=== PATIENT | female | born 1950 | race Caucasian/White ===

== ENCOUNTER 2020-12-14 08:43 | Outpatient (REF) | payer MEDICARE, SELFPAY ==
--- NOTE | 2020-12-14 08:49 | MM_ITS ---
EXAMINATION: MM SCREENING DIGITAL BREAST TOMOSYNTHESIS, BILATERAL CLINICAL INFORMATION: Screening. Asymptomatic. The lifetime risk of breast cancer based on the Tyrer-Cuzick Model is 2%. COMPARISON: Mammography: 12/09/2019, 12/17/2018, 12/03/2018, 11/25/2017, 11/22/2016 TECHNIQUE: Digital breast tomosynthesis is performed in both the craniocaudal and mediolateral oblique views along with computer-aided detection (CAD). Synthesized 2D images are generated from the tomosynthesis. Additional left MLO view is provided. FINDINGS: The breasts are heterogeneously dense, which may obscure small masses (ACR BI-RADS breast composition Category c). There are no significant masses, abnormal calcifications, or other abnormalities. Parenchymal pattern is similar to prior exams. No developing density. No significant changes. MM/MM tomosynthesis screening BI IMPRESSION: No mammographic evidence of malignancy. ASSESSMENT: BI-RADS 1: Negative RECOMMENDATION: Routine annual mammography screening. This patient's information was entered into a reminder system with a target due date for their next mammogram.
== END 2020-12-14 08:44 | disposition home or self-care (01) ==
LOC: HO.MAMMO 08:43
PROVIDERS: PCP Internal Medicine; Visit Provider Internal Medicine
DX: Z12.31 Encounter for screening mammogram for malignant neoplasm of breast (principal)
CPT/HCPCS: 77063; 77067

== ENCOUNTER → 2021-01-08 09:11 | Outpatient (BNVA) | payer MEDICARE, SELFPAY | PROVIDERS: PCP Internal Medicine; Visit Provider Obstetrics & Gynecology ==

== ENCOUNTER 2021-01-18 08:57 | Outpatient (REF) | payer MEDICARE, SELFPAY ==
--- NOTE | ~2021-01-18 | MM_ITS ---
EXAMINATION: BONE DENSITOMETRY CLINICAL INDICATION: Asymptomatic menopausal state. COMPARISON: Previous BD dated 11/25/2017 and baseline BD dated 10/07/2013. TECHNIQUE: Using a [employer] DXA System (software version: 13.1) manufactured by [employer], dual-energy x-ray absorptiometry was performed of the lumbar spine and left hip. The images are of good technical quality. Summary results are attached. FINDINGS: AP SPINE L1-L4: Current: BMD 1.040 g/cm2, Z-score 1.0, T-score -1.2, osteopenia, 18.6% increase from previous, 17.2% increase from baseline (<5% change is not significant). Prior: BMD 0.877 g/cm2. Baseline: BMD 0.887 g/cm2. LEFT FEMUR, NECK: Current: BMD 0.724 g/cm2, Z-score -0.1, T-score -2.3, osteopenia. Prior: BMD 0.743 g/cm2. Baseline: BMD 0.764 g/cm2. LEFT FEMUR, TOTAL: Current: BMD 0.730 g/cm2, Z-score -0.3, T-score -2.2, osteopenia, 2.1% decrease from previous, 1.7% decrease from baseline (<5% change is not significant). Prior: BMD 0.746 g/cm2. Baseline: BMD 0.743 g/cm2. IDENTIFIED RISK FACTORS: Osteoporosis, history of fracture (adult), menopause. HISTORY OF FRACTURE: Wrist. MEDICATIONS: Calcium supplements or multivitamin, vitamin D, bisphosphonate. MM/XR DEXA axial skeleton IMPRESSION: 1. DIAGNOSIS: Osteopenia based on the lowest T-score value of -2.3 in the femoral neck applying World Health Organization criteria. 2. 10-YEAR FRACTURE RISK PREDICTION, FRAX: Major osteoporotic fracture (clinical spine, forearm, hip or shoulder) 19.1%. Hip fracture 5.0%. 3. Treatment Recommendations: NOF guidelines recommend consideration for treatment in postmenopausal women and men age 50 and older presenting with the following: -A hip or vertebral (clinical or morphometric) fracture. -T-score less than or equal to -2.5 at the femoral neck or spine after appropriate evaluation to exclude secondary causes. -Low bone mass at the hip or spine and a 10-year fracture probability by FRAX of greater than or equal to 3% for hip fracture or greater than or equal to 20% for major osteoporotic fracture based on the [place] adapted WHO algorithm. 4. Other Recommendations: All treatment decisions require clinical judgment and consideration of individual patient factors, including patient preferences, comorbidities, previous drug use, risk factors not captured in the FRAX model (e.g. frailty, falls, vitamin D deficiency, increased bone turnover, interval significant decline in bone density) and possible under or overestimation of fracture risk by FRAX. Additional medical evaluation for secondary cause of low bone mineral density may be appropriate. FUTURE SCAN RECOMMENDATION: People with diagnosed cases of osteoporosis or at high risk for fracture should have regular bone mineral density tests. For patients eligible for Medicare, routine testing is allowed once every 2 years. The testing frequency can be increased to one year for patients who have rapidly progressing disease, those who are receiving or discontinuing medical therapy to restore bone mass, or have additional risk factors.
== END 2021-01-18 08:58 | disposition home or self-care (01) ==
LOC: HO.MAMMO 08:57
PROVIDERS: PCP Internal Medicine; Visit Provider Obstetrics & Gynecology
DX: Z13.820 Encounter for screening for osteoporosis (principal); Z78.0 Asymptomatic menopausal state; Z79.899 Other long term (current) drug therapy
CPT/HCPCS: 77080

== ENCOUNTER → 2021-01-30 15:12 | Outpatient (BNVA) | payer MEDICARE, SELFPAY | PROVIDERS: Visit Provider Obstetrics & Gynecology | CPT/HCPCS: Q3014 ==

== ENCOUNTER 2021-12-25 10:33 | Outpatient (REF) | payer MEDICARE, SELFPAY ==
--- NOTE | ~2021-12-25 | MM_ITS ---
EXAMINATION: MM SCREENING DIGITAL BREAST TOMOSYNTHESIS, BILATERAL CLINICAL INFORMATION: Screening. Asymptomatic. The lifetime risk of breast cancer based on the Tyrer-Cuzick Model is 3%. COMPARISON: Mammography: 12/14/2020, 12/09/2019, 12/17/2018, 12/03/2018, 11/25/2017 TECHNIQUE: Digital breast tomosynthesis is performed in both the craniocaudal and mediolateral oblique views along with computer-aided detection (CAD). Synthesized 2D images are generated from the tomosynthesis. FINDINGS: The breasts are heterogeneously dense, which may obscure small masses (ACR BI-RADS breast composition Category c). There are no significant masses, abnormal calcifications, or other abnormalities. Parenchymal pattern is similar to prior studies. There is no developing density or architectural abnormality. Small circumscribed nodule posterior outer right breast on CC view is stable. There is stable parenchymal asymmetry upper right breast on MLO view similar to previous exams as well. The axilla and skin contours are unremarkable. No significant changes. MM/MM tomosynthesis screening BI IMPRESSION: No significant changes from prior studies. ASSESSMENT: BI-RADS 2: Benign RECOMMENDATION: Routine annual mammography screening. This patient's information was entered into a reminder system with a target due date for their next mammogram.
== END 2021-12-25 10:34 | disposition home or self-care (01) ==
LOC: HO.MAMMO 10:33
PROVIDERS: PCP Internal Medicine; Visit Provider Internal Medicine
DX: Z12.31 Encounter for screening mammogram for malignant neoplasm of breast (principal)
CPT/HCPCS: 77063; 77067

== ENCOUNTER → 2022-01-10 09:17 | Outpatient (BNVA) | payer MEDICARE, SELFPAY | PROVIDERS: PCP Internal Medicine; Visit Provider Obstetrics & Gynecology | DX: Z13.89 Encounter for screening for other disorder (principal) ==

== ENCOUNTER 2022-11-21 05:49 | Outpatient (REF) | payer MEDICARE, SELFPAY ==
--- NOTE | ~2022-11-21 | XR_ITS ---
EXAMINATION: XR ANKLE, LEFT CLINICAL INFORMATION: M25.572 - Pain in left ankle and joints of left foot COMPARISON: Outside left ankle radiographs 11/16/2022 ([facility] TECHNIQUE: Left ankle is imaged in 3 views. FINDINGS: The malleoli are intact and the ankle mortise is symmetric. Talar dome shows no osteochondral lesion. Lateral view slightly obliqued. Again, there is a short linear ossification from distal dorsal talus suggesting avulsion injury, indeterminate age. Recommend correlation with patient's symptoms and clinical exam. The subtalar joint and base fifth metatarsal are unremarkable. There are punctate posterior and plantar calcaneal spurs. XR/XR ankle LT min 3V IMPRESSION: -Small linear ossification distal dorsal talus suggesting avulsion injury, indeterminate age. Recommend correlation with patient's symptoms and clinical exam. -Small posterior and plantar calcaneal spurs.
== END 2022-11-21 05:50 | disposition home or self-care (01) ==
LOC: HO.HOSX 05:49
PROVIDERS: Visit Provider Physician Assistant
DX: S92.152A Displaced avulsion fracture (chip fracture) of left talus, initial encounter for closed fracture (principal)
CPT/HCPCS: 73610; 99202

== ENCOUNTER 2022-12-31 09:43 | Outpatient (REF) | payer MEDICARE, SELFPAY ==
--- NOTE | ~2022-12-31 | MM_ITS ---
EXAMINATION: MM SCREENING DIGITAL BREAST TOMOSYNTHESIS, BILATERAL CLINICAL INFORMATION: Screening. Asymptomatic. The lifetime risk of breast cancer based on the Tyrer-Cuzick Model is 3%. COMPARISON: Mammography: 12/25/2021, and prior studies dating back to 11/22/2016 TECHNIQUE: Digital breast tomosynthesis is performed in both the craniocaudal and mediolateral oblique views along with computer-aided detection (CAD). Synthesized 2D images are generated from the tomosynthesis. Additional bilateral exaggerated CC views are provided. FINDINGS: The breasts are heterogeneously dense, which may obscure small masses (ACR BI-RADS breast composition Category c). Parenchymal asymmetry posterior upper left breast on MLO view 8-9 cm from nipple shows subtle increase in attenuation, possibly related to incompletely compressed glandular tissue. Patient will be recalled for additional imaging. Remainder of the bilateral breasts show no significant changes. There is no interval mass or architectural abnormality or abnormal calcifications. The axilla and skin contours are unremarkable. MM/MM tomosynthesis screening BI IMPRESSION: Left: -Increased attenuation posterior upper breast on MLO view, possibly related to incompletely compressed glandular tissue. Right: -No mammographic evidence of malignancy. ASSESSMENT: BI-RADS 0: Incomplete - Need Additional Imaging Evaluation RECOMMENDATION: 1. Additional views of the left breast (spot MLO, changed angle MLO). 2. Targeted ultrasound if warranted after review of the additional views. 3. Radiology department staff will contact the patient for additional imaging. This patient's information was entered into a reminder system with a target due date for their next mammogram.
== END 2022-12-31 09:44 | disposition home or self-care (01) ==
LOC: HO.MAMMO 09:43
PROVIDERS: PCP Internal Medicine; Visit Provider Internal Medicine
DX: Z12.31 Encounter for screening mammogram for malignant neoplasm of breast (principal)
CPT/HCPCS: 77063; 77067

== ENCOUNTER 2023-01-07 08:17 | Outpatient (REF) | payer MEDICARE, SELFPAY ==
--- NOTE | ~2023-01-07 | MM_ITS ---
EXAMINATION: MM DIAGNOSTIC DIGITAL BREAST TOMOSYNTHESIS, LEFT CLINICAL INFORMATION: Asymmetric density COMPARISON: Mammography: December 31, 2022 and studies dating back to August 29, 2011 TECHNIQUE: Digital breast tomosynthesis is performed. 2D images are generated from the tomosynthesis. The following views are obtained: Full-field mediolateral oblique and spot compression mediolateral oblique views. FINDINGS: The breasts are heterogeneously dense, which may obscure small masses (ACR BI-RADS breast composition Category c). Additional views show no significant mass, architectural abnormality, or abnormal calcifications. There is a stable appearance dating back to October 07, 2013 Results are discussed with the patient at time of visit. MM/MM tomosynthesis added views L IMPRESSION: No new persistent suspicious left breast density. ASSESSMENT: BI-RADS 1: Negative RECOMMENDATION: Routine annual mammography screening. This patient's information was entered into a reminder system with a target due date for their next mammogram.
== END 2023-01-07 08:18 | disposition home or self-care (01) ==
LOC: HO.MAMMO 08:17
PROVIDERS: Visit Provider Internal Medicine
DX: R92.8 Other abnormal and inconclusive findings on diagnostic imaging of breast (principal)
CPT/HCPCS: 77061; 77065

== ENCOUNTER → 2023-01-16 08:21 | Outpatient (BNVA) | payer MEDICARE, SELFPAY | PROVIDERS: PCP Internal Medicine; Visit Provider Obstetrics & Gynecology | DX: Z13.89 Encounter for screening for other disorder (principal) ==

== ENCOUNTER 2023-01-21 13:17 | Outpatient (REF) | payer MEDICARE, SELFPAY ==
--- NOTE | ~2023-01-21 | MM_ITS ---
EXAMINATION: BONE DENSITOMETRY CLINICAL INDICATION: Osteopenia. COMPARISON: Previous BD dated 01/18/2021 and baseline BD dated 10/07/2013. TECHNIQUE: Using a [employer] DXA System (software version: 13.1) manufactured by [employer], dual-energy x-ray absorptiometry was performed of the lumbar spine and left hip. The images are of good technical quality. Summary results are attached. FINDINGS: AP SPINE L1-L2 (excluding L3 and L4): The data of L1-L4 has been changed to exclude the L3 and L4 vertebral bodies, because degenerative changes at these levels may cause overestimation of lumbar spine density. Current: BMD 0.810 g/cm2, Z-score -0.9, T-score -3.0, osteoporosis, 0.1% decrease from previous, 0.4% decrease from baseline (<5% change is not significant). Prior: BMD 0.811 g/cm2. Baseline: BMD 0.813 g/cm2. LEFT FEMUR, NECK: Current: BMD 0.701 g/cm2, Z-score -0.3, T-score -2.4, osteopenia. Prior: BMD 0.724 g/cm2. Baseline: BMD 0.764 g/cm2. LEFT FEMUR, TOTAL: Current: BMD 0.688 g/cm2, Z-score -0.6, T-score -2.5, osteoporosis, 5.8% decrease from previous, 7.4% decrease from baseline (<5% change is not significant). Prior: BMD 0.730 g/cm2. Baseline: BMD 0.743 g/cm2. IDENTIFIED RISK FACTORS: Menopause, height loss, history of fracture (adult), osteoporosis, recurrent falls. HISTORY OF FRACTURE: Wrist, ankle. MEDICATIONS: Calcium, vitamin D, bisphosphonate. MM/XR DEXA axial skeleton IMPRESSION: 1. DIAGNOSIS: Osteoporosis based on the lowest T-score value of -3.0 in the lumbar spine applying World Health Organization criteria. 2. 10-YEAR FRACTURE RISK PREDICTION, FRAX: According to the guidelines, FRAX calculation should only be performed on patients in the osteopenia bone density category. Therefore, FRAX was not performed on this patient. 3. Treatment Recommendations: NOF guidelines recommend consideration for treatment in postmenopausal women and men age 50 and older presenting with the following: -A hip or vertebral (clinical or morphometric) fracture. -T-score less than or equal to -2.5 at the femoral neck or spine after appropriate evaluation to exclude secondary causes. -Low bone mass at the hip or spine and a 10-year fracture probability by FRAX of greater than or equal to 3% for hip fracture or greater than or equal to 20% for major osteoporotic fracture based on the [place] adapted WHO algorithm. 4. Other Recommendations: All treatment decisions require clinical judgment and consideration of individual patient factors, including patient preferences, comorbidities, previous drug use, risk factors not captured in the FRAX model (e.g. frailty, falls, vitamin D deficiency, increased bone turnover, interval significant decline in bone density) and possible under or overestimation of fracture risk by FRAX. Additional medical evaluation for secondary cause of low bone mineral density may be appropriate. FUTURE SCAN RECOMMENDATION: People with diagnosed cases of osteoporosis or at high risk for fracture should have regular bone mineral density tests. For patients eligible for Medicare, routine testing is allowed once every 2 years. The testing frequency can be increased to one year for patients who have rapidly progressing disease, those who are receiving or discontinuing medical therapy to restore bone mass, or have additional risk factors.
== END 2023-01-21 13:18 | disposition home or self-care (01) ==
LOC: HO.MAMMO 13:17
PROVIDERS: Visit Provider Obstetrics & Gynecology
DX: Z13.820 Encounter for screening for osteoporosis (principal); M85.80 Other specified disorders of bone density and structure, unspecified site; Z78.0 Asymptomatic menopausal state
CPT/HCPCS: 77080

== ENCOUNTER 2023-01-23 13:00 | Outpatient (RCR) | payer MEDICARE, SELFPAY ==
--- NOTE | 2022-12-26 13:56 | MHC.PT.EP ---
[facility] [place] Office [place] Office [place] Office [address] [phone] F: [phone] F: [phone] F: [phone] F: [phone] Physical Therapy Plan of Care Date of Evaluation: Date of Surgery: NA Diagnosis: Displaced avulsion fracture of L talus, initial encounter for closed fracture Assessment: Dulce is a 72 year old female who is referred to PT for Displaced avulsion fracture of L talus, initial encounter for closed fracture . She sustained the fracture secondary to a fall about 5 weeks back while dancing. Her ankle was immobilized in a boot for 3-4 weeks. She self d/c the boot a few days back and bought herself an ASO. On PT examination she walked in with a ASO, has 3/10 pain with prolonged standing, walking and stairs, TTP over shirley-lateral ankle joint line, presented with decreased ankle ROM, decreased L LE strength, altered posture, balance and gait. She lives with her and is independent with all ADLS. She enjoys dancing tap and jazz however has not been able to do it due to ankle pain. She would benefit from skilled PT to address the aforementioned impairments and improve tolerance to functional activities. Frequency and Duration: The patient will be seen 2/week for 5 weeks Short Term Goals: 1. Pt will have 50% decrease in which will enable to her to tolerate walking for 30 minutes in 2 weeks. 2. Pt will have all ankle ROM WNL which will enable to negotiate stairs without pain in 3 weeks. Fci Goals: 1. Pt will present with increase in muscle strength by 1 grade which will enable her to dance tap and jazz without pain in 5 weeks. 2. Pt will be independent with [facility] for symptom management and maintenance following d/c in 5 weeks. Treatment Plan: Modalities to reduce pain, spasms and effusion. Manual therapy to restore motion and function. Therapeutic exercise to improve strength and flexibility. Neuromuscular re-education for posture and balance. Therapeutic activities to return to functional activities of daily living. Electronically signed by: Carrie Elliott PT DPT Please sign and return to therapist. Thank you for your referral.
--- NOTE | 2023-01-24 10:50 | MHC.PT.DC ---
[facility] [place] Office [place] Office [place] Office [address] [phone] F: [phone] F: [phone] F: [phone] F: [phone] Physical Therapy Discharge Report Diagnosis: Displaced avulsion fracture of L talus, initial encounter for closed fracture Date of Surgery: NA Date of Evaluation: 12/26/22 Date of Discharge: 01/24/23 Treatments to Date: 8 Cancellations to Date: 0 No Shows to Date: 0 Discharge Status: Achieved Goals Improved Function Independent with [facility]P Discharge Summary: Dulce has completed 8 visits and she continues to do well throughout program w/o pain. Discussed d/c to [facility] today and pt reports feeling confident with program and overall doing better. She is still challenged by stairs but notes she will take them slowly as needed. Pt is back to dance and prior activities w/o pain at this time. D/C today I with [facility]. Electronically signed by: Carrie Elliott PT DPT Please sign and return to therapist. Thank you for your referral.
== END 2023-01-24 10:50 | disposition home or self-care (01) ==
LOC: HO.PT 13:00
PROVIDERS: PCP Internal Medicine; Visit Provider Physician Assistant
DX: S92.152D Displaced avulsion fracture (chip fracture) of left talus, subsequent encounter for fracture with routine healing (principal)
CPT/HCPCS: 97110; 97112; 97161; 97530

== ENCOUNTER → 2023-02-24 11:28 | Outpatient (BNVA) | payer MEDICARE, SELFPAY | PROVIDERS: PCP Internal Medicine; Visit Provider Obstetrics & Gynecology | DX: M81.0 Age-related osteoporosis without current pathological fracture (principal) | CPT/HCPCS: 99212 ==

== ENCOUNTER 2023-08-07 08:26 | Outpatient (AMB) | payer MEDICARE, SELFPAY ==
[2023-08-07 08:31] VITALS: BP 122/64; PULSE 72; TEMP 36.6; BMI 20.7
--- NOTE | 2023-08-07 08:31 | MHC.OFFVIS ---
Intake Vital Signs 08/07/23 08:31 Height 5 ft 3 in Weight 117 lb 1.047 oz BMI 20.7 BP 122/64 Blood Pressure Location Rt brachial Position Sitting Pulse 72 Pulse Source Palpation Temp 97.9 F Temp Source Skin Intake Visit Reasons: osteoporosis without current pathological fracture Intake Note: New pt presents today for consult. C/o back pain, states she has scoliosis. Recent bloodwork with PCP (requested) Distribution Spec Required: No Accompanied by: Self / Same As Patient Allergies No Known Allergies Allergy (Verified 08/07/23 08:34) Medication List - Last Reconciled 08/07/23 by Giovani Cramer MD alendronate (Fosamax) 70 mg PO QWEEK calcium carbonate 600 mg PO DAILY cholecalciferol (vitamin D3) 25 mcg PO DAILY fluticasone propionate 50 mcg/actuation sprays intranasal glucosamine sulfate (Glucosamine) 500 mg PO DAILY omeprazole 40 mg PO DAILY rosuvastatin 20 mg PO DAILY HPI HPI Comments History of Present Illness Details This is a 73-year-old female with osteoporosis who presents for osteoporosis evaluation. Patient stated that she has had osteoporosis for many years. She has been on Fosamax for 5-10 years. Patient stated that she broke her wrist when she was in 5th grade and had another risk fracture in her 40s. She had an ankle fracture last year when she slipped on the floor while dancing. Patient reached menopause in her 50s. Today patient has no complaints except for intermittent low back pain. She has known history of scoliosis. [facility] Medical History (Updated 08/07/23 @ 09:18 by Giovani Cramer MD) High cholesterol Surgical History H/O hand surgery Family History Mother Heart attack Ribeiro palsy Father No problems noted. Social History Household Members: Spouse Housing: House Alcohol intake: current Alcohol intake frequency: holidays/special occasions only Patient Tobacco Use Status: Former Tobacco user Quit Date: 1989 Current occupational status: retired Sexual orientation: Straight/Heterosexual Gender identity: Female Female Reproductive History Menstrual Age of Menarche: 10 Review of Systems [facility] Reports back pain, Reports myalgias and Reports stiffness Physical Exam Vital Signs: Last Vital Signs Temp 97.9 F 08/07/23 08:31 Pulse 72 08/07/23 08:31 BP 122/64 08/07/23 08:31 BMI result Body Mass Index 20.7 Const General: cooperative, healthy appearing and comfortable Nutritional Appearance: average body habitus Orientation/consciousness: patient oriented x3 Limitations: no limitations HEENT Head: Yes normocephalic and Yes atraumatic Mouth: moist mucous membranes Resp Effort & Inspection: normal respiratory effort and able to speak in complete sentences Auscultation: clear to auscultation bilaterally Cardio Rate: regular rate Rhythm: regular rhythm Heart sounds: S1 normal heart sound present and S2 normal heart sound present GI Inspection: No distended Palpation (GI): Soft to palpation and nontender Skin General skin exam: no rashes or lesions noted Neuro General: patient oriented x3 Extrem Other: Osteoarthritic changes of both hands with no active synovitis Results Reviewed Results Reviewed: DEXA 01/23 L-spine T-score -3.0 Left femoral neck T-score-2.4? Left femur total -2.5 DEXA 01/2021 L-spine T-score -1.2 Left femoral neck T-score-2.3? Left femur total -2.2 Assessment & Plan Assessment & Plan (1) Osteoporosis: Code(s): M81.0 - Age-related osteoporosis without current pathological fracture Qualifiers: Osteoporosis type: age-related Presence of current pathological fracture: unspecified Qualified Code(s): M81.0 - Age-related osteoporosis without current pathological fracture Plan: This is a 73-year-old female was referred from OBGYN for osteoporosis management. Patient has had osteoporosis for many years. She has been on Fosamax for more than 5 years. Recent DEXA scan showed some decrease in bone density. Will need to change her Fosamax. Discussed multiple therapeutic options including Prolia and Forteo. Patient is not interested in doing daily self injections. She is agreeable to start Prolia. Check labs 1st. Check causes of secondary osteoporosis. If labs are unremarkable will start prior authorization for Prolia. We discussed important measures for osteoporosis management including avoiding falls, weight-bearing exercises, adequate calcium and vitamin-D intake. Plan I spent 46 minutes reviewing patient's chart, evaluating patient, ordering diagnostic workup, counseling patient and documenting in the chart Orders: Orders Complete Blood Count Auto Diff Today M81.0 - Age-related osteoporosis without current pathological fracture Vitamin D 25-OH (D2 and D3) Today Z13.21 - Encounter for screening for nutritional disorder Phosphorus Today M81.0 - Age-related osteoporosis without current pathological fracture Immunofixation Pnl, Serum Today M81.0 - Age-related osteoporosis without current pathological fracture Comprehensive Met. Panel Today M81.0 - Age-related osteoporosis without current pathological fracture PTHI Today M81.0 - Age-related osteoporosis without current pathological fracture Protein Electrophoresis, Serum Today M81.0 - Age-related osteoporosis without current pathological fracture TSH reflex Free T4 Today M81.0 - Age-related osteoporosis without current pathological fracture Coding Level of Care Code New Pt Level 4 (08454) Diagnoses Age related osteoporosis, unspecified pathological fracture presence M81.0 Osteoporosis type: age-related Presence of current pathological fracture: unspecified
== END 2023-08-07 09:10 | disposition home or self-care (01) ==
PROVIDERS: PCP Internal Medicine; Visit Provider Student in an Organized Health Care Education/Training Program
DX: M81.0 Age-related osteoporosis without current pathological fracture (principal)
CPT/HCPCS: 99204

== ENCOUNTER → 2023-08-07 08:26 | Outpatient (BNVA) | payer MEDICARE, SELFPAY | PROVIDERS: PCP Internal Medicine; Visit Provider Student in an Organized Health Care Education/Training Program | DX: M81.0 Age-related osteoporosis without current pathological fracture (principal) | CPT/HCPCS: 99202 ==

== ENCOUNTER 2023-08-07 09:14 | Outpatient (REF) | payer MEDICARE, SELFPAY ==
[2023-08-07 11:57] LABS: MANUAL DIFF FLAG NO
[2023-08-07 12:20] LABS: Basophils Percent Auto 0.8 % (0-2); Eosinophils Absolute Auto 0.1 X10*3/uL (0.0-0.4); Eosinophils Percent Auto 2.7 % (0-4); Hematocrit 38.5 % (37.0-47.0); Hemoglobin 12.5 g/dl (12.0-16.0); Imm Gran Abs Auto 0.03 X10*3/uL (0.00-0.03); Imm Gran Pct Auto 0.6 % (0.0-0.4); Lymphocytes Absolute Auto 1.7 X10*3/uL (1.2-4.9); Lymphocytes Percent Auto 33.3 % (20-40); Mean Corpuscular HGB Conc 32.5 g/dl (31.0-35.0); Mean Corpuscular Hemoglobin 29.6 pg (27.0-33.0); Mean Platelet Volume 9.7 fL (9.4-12.3); Monocytes Absolute Auto 0.5 X10*3/uL (0.1-1.2); Monocytes Percent Auto 9.9 % (2-11); Neutrophils Absolute Auto 2.7 x10*3/uL (2.0-8.3); Neutrophils Percent Auto 52.7 % (45-73); Platelet Count 275 X10*3/uL (160-400); Red Blood Count 4.23 X10*6/uL (4.20-5.50); Red Cell Distribution Width 14.6 % (11.0-16.0); White Blood Count 5.2 X10*3/uL (4.8-10.8)
[2023-08-07 12:38] LABS: Alanine Aminotransferase 22 U/L (0-31); Albumin Level 4.2 g/dL (3.5-5.0); Alkaline Phosphatase 65 U/L (39-117); Anion Gap 10 (12-20); Aspartate Amino Transferase 25 U/L (5-31); Bilirubin Total 0.5 mg/dL (0.0-1.0); Blood Urea Nitrogen 16 mg/dL (9-16); Calcium 9.9 mg/dL (8.4-10.2); Carbon Dioxide 29 mmol/L (22-29); Chloride 105 mmol/L (96-108); Estimated Glomerular Filt Rate > 60; Glucose Random 80 mg/dL (60-115); Sodium 140 mmol/L (135-145)
[2023-08-07 12:43] LABS: TSH reflex Free T4 1.98 uIU/mL (0.32-4.0)
[2023-08-08 15:54] LABS: Calcium (PTHI) 9.5 mg/dL (8.6-10.4); PTHI 20 pg/mL (16-77)
[2023-08-11 11:54] LABS: Prot Elec - Albumin 4.2 g/dL (3.8-4.8); Prot Elec - Alpha1 0.3 g/dL (0.2-0.3); Prot Elec - Alpha2 0.7 g/dL (0.5-0.9); Prot Elec - Beta 1 0.5 g/dL (0.4-0.6); Prot Elec - Beta 2 0.5 g/dL (0.2-0.5); Prot Elec - Gamma 1.7 g/dL (0.8-1.7); Prot Elec - Total Protein 7.8 g/dL (6.1-8.1)
[2023-08-12 09:54] LABS: IgA 186 mg/dL (70-320); IgG 2063 mg/dL (600-1540); IgM 129 mg/dL (50-300)
[2023-08-13 13:59] LABS: Vitamin D 25-OH, D2 <4 ng/mL; Vitamin D 25-OH, D3 36 ng/mL; Vitamin D 25-OH, Total 36 ng/mL (30-100)
== END 2023-08-07 09:15 | disposition home or self-care (01) ==
LOC: HO.10HDL 09:14
PROVIDERS: Visit Provider Student in an Organized Health Care Education/Training Program
DX: Z13.21 Encounter for screening for nutritional disorder (principal); M81.0 Age-related osteoporosis without current pathological fracture; R53.82 Chronic fatigue, unspecified
CPT/HCPCS: 36415; 80053; 82306; 82784; 83970; 84100; 84165; 84443; 85025; 86334

== ENCOUNTER 2023-08-19 08:10 | Outpatient (AMB) | payer MEDICARE, SELFPAY ==
[2023-08-19 13:13] VITALS: BP 130/77; PULSE 81; RESP 17
--- NOTE | 2023-08-19 13:13 | AM.OFFVISNUR ---
Intake Vital Signs 08/19/23 13:13 BP 130/77 Blood Pressure Location Lt brachial Position Sitting Respiration 17 Pulse 81 Pulse Source Pulse Oximeter Intake Visit Reasons: Osteoporosis/prolia inj Allergies No Known Allergies Allergy (Verified 08/19/23 13:14) Medication List - Last Reconciled 08/19/23 by Paulina Dhaliwal RN alendronate (Fosamax) 70 mg PO QWEEK calcium carbonate 600 mg PO DAILY cholecalciferol (vitamin D3) 25 mcg PO DAILY fluticasone propionate 50 mcg/actuation sprays intranasal glucosamine sulfate (Glucosamine) 500 mg PO DAILY omeprazole 40 mg PO DAILY rosuvastatin 20 mg PO DAILY Nursing Note Patient is here today for first Prolia injection. I have given patient all pertinent information regarding medication and possible side effects. I provided patient with a Prolia information sheet. Patient gave consent to administer Prolia. Patient tolerated injection well. 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
== END 2023-08-19 09:02 | disposition home or self-care (01) ==
PROVIDERS: PCP Internal Medicine
DX: M81.0 Age-related osteoporosis without current pathological fracture (principal)

== ENCOUNTER → 2023-08-19 08:10 | Outpatient (BNVA) | payer MEDICARE, SELFPAY | PROVIDERS: PCP Internal Medicine | DX: M81.0 Age-related osteoporosis without current pathological fracture (principal) | CPT/HCPCS: 96372; J0897 ==

== ENCOUNTER 2024-01-16 08:15 | Outpatient (REF) | payer MEDICARE, SELFPAY | END 2024-01-16 08:16 | disposition home or self-care (01) | LOC: HO.MAMMO 08:15 | PROVIDERS: PCP Internal Medicine; Visit Provider Internal Medicine | DX: Z12.31 Encounter for screening mammogram for malignant neoplasm of breast (principal) | CPT/HCPCS: 77063; 77067 ==

== ENCOUNTER → 2024-01-16 08:30 | Outpatient (BNV) | payer MEDICARE, SELFPAY | PROVIDERS: PCP Internal Medicine; Visit Provider Radiology Diagnostic Radiology | DX: Z12.31 Encounter for screening mammogram for malignant neoplasm of breast (principal) | CPT/HCPCS: 77063; 77067 ==

== ENCOUNTER 2024-01-22 08:16 | Outpatient (AMB) | payer MEDICARE, SELFPAY ==
--- NOTE | 2024-01-22 08:37 | MHC.OFFVIS ---
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 No complaints. Last Pap/HPV was negative many years ago, no history of abnormal Pap smear last 25 years according to the patient Last Mammogram was done few weeks ago the results are still pending Last Colonoscopy was around 5 years ago according the patient and she is not due for another screening colonoscopy yet Last DEXA scan was in 01/23, the patient had significant osteoporosis will referred to Rheumatology and was started on Prolia PFSH Medical History High cholesterol Surgical History H/O hand surgery Family History Mother Heart attack Ribeiro palsy Father No problems noted. Social History Household Members: Spouse Housing: House Alcohol intake: current Alcohol intake frequency: holidays/special occasions only Patient Tobacco Use Status: Former Tobacco user Quit Date: 1989 Patient : No Current occupational status: retired Sexual orientation: Straight/Heterosexual Gender identity: Female Female Reproductive History Menstrual Age of Menarche: 10 Total pregnancies: 2 Full term: 2 Number of Living Children: 2 Date of last pap smear: 08/25/13 History of abnormal pap smear: No Date of Mammogram: 01/16/24 Date of last Bone Density Screenin01/21/23 Review of Systems Const All systems reviewed & are unremarkable except as noted in HPI and below Card Reports as per HPI Resp Reports as per HPI GI Reports as per HPI and Reports no additional complaints Reports as per HPI Physical Exam Vital Signs: Last Vital Signs BP 132/70 01/22/24 08:38 BMI result Body Mass Index 20.7 Const General: cooperative, healthy appearing and comfortable Chest Chest palpation & inspection: normal inspection of the chest and normal palpation of entire chest wall Breast/axilla inspection: normal inspection of the breasts and normal inspection of the axillae Breast/axilla palpation: normal palpation of the breasts, normal palpation of the axillae and no axillary lymphadenopathy Resp Effort & Inspection: normal respiratory effort Auscultation: clear to auscultation bilaterally Percussion: percussion normal Cardio Palpation: normal PMI Rate: regular rate Rhythm: regular rhythm Heart sounds: no murmurs and no rubs Peripheral pulses: Peripheral pulses 2+ throughout GI Inspection: Yes normal to inspection Palpation (GI): Soft to palpation, nontender, no guarding, not rigid and No hepatosplenomegaly present Percussion: Yes normal to percussion Auscultation: normal bowel sounds Rectal Exam - Female: deferred General: Yes bladder normal to palpation External Female Exam: No lesion Speculum Exam - Vagina: normal appearance of the vagina, normal palpation, normal vaginal discharge and not erythematous Speculum Exam - Cervix: normal appearance of the cervix and normal palpation Bimanual exam- vagina & uterus: normal bimanual exam, normal palpation, uterine size normal, bladder normal to palpation, consistency normal and normal palpation Bimanual Exam- Adnexa, other: normal adnexae, no masses and no tenderness Assessment & Plan Assessment & Plan (1) Well woman exam: Code(s): Z01.419 - Encounter for gynecological examination (general) (routine) without abnormal findings Plan: Co testing not indicated since the patient 's age is above 65 with no history of abnormal Pap smears last 25 years. Counseled the patient about the recommended dietary allowance of 1200 mg of Calcium & 800 IU of vitamin D. Instructions given the patient to schedule next year screening Mammogram in 01/25 The patient was instructed to perform monthly self-breast exams and to schedule an annual exam in a year; All questions answered and the patient verbalized understanding. Coding Level of Care Code Est Pt Prev Care >65y(38610) Diagnoses Well woman exam Z01.419
[2024-01-22 08:38] VITALS: BP 132/70; BMI 20.7
== END 2024-01-22 09:04 | disposition home or self-care (01) ==
PROVIDERS: Visit Provider Obstetrics & Gynecology
DX: Z01.419 Encounter for gynecological examination (general) (routine) without abnormal findings (principal)
CPT/HCPCS: 99397

== ENCOUNTER → 2024-01-22 08:16 | Outpatient (BNVA) | payer MEDICARE, SELFPAY | PROVIDERS: Visit Provider Obstetrics & Gynecology ==

== ENCOUNTER 2024-02-12 09:04 | Outpatient (REF) | payer MEDICARE, SELFPAY ==
[2024-02-12 09:26] LABS: MANUAL DIFF FLAG NO
[2024-02-12 09:41] LABS: Basophils Percent Auto 0.9 % (0-2); Eosinophils Absolute Auto 0.1 X10*3/uL (0.0-0.4); Eosinophils Percent Auto 2.4 % (0-4); Hemoglobin 11.8 g/dl (12.0-16.0); Imm Gran Abs Auto 0.01 X10*3/uL (0.00-0.03); Imm Gran Pct Auto 0.2 % (0.0-0.4); Lymphocytes Absolute Auto 1.9 X10*3/uL (1.2-4.9); Lymphocytes Percent Auto 41.2 % (20-40); Mean Corpuscular HGB Conc 32.8 g/dl (31.0-35.0); Mean Corpuscular Hemoglobin 29.1 pg (27.0-33.0); Mean Corpuscular Volume 88.7 fL (80.0-98.0); Mean Platelet Volume 9.1 fL (9.4-12.3); Monocytes Absolute Auto 0.5 X10*3/uL (0.1-1.2); Monocytes Percent Auto 10.8 % (2-11); Neutrophils Absolute Auto 2.1 x10*3/uL (2.0-8.3); Neutrophils Percent Auto 44.5 % (45-73); Platelet Count 234 X10*3/uL (160-400); Red Blood Count 4.06 X10*6/uL (4.20-5.50); Red Cell Distribution Width 14.5 % (11.0-16.0); White Blood Count 4.6 X10*3/uL (4.8-10.8)
[2024-02-12 10:20] LABS: Alanine Aminotransferase 18 U/L (0-31); Albumin Level 4.1 g/dL (3.5-5.0); Alkaline Phosphatase 60 U/L (39-117); Anion Gap 9 (12-20); Aspartate Amino Transferase 23 U/L (5-31); Bilirubin Total 0.5 mg/dL (0.0-1.0); Blood Urea Nitrogen 13 mg/dL (9-16); Calcium 9.1 mg/dL (8.4-10.2); Carbon Dioxide 28 mmol/L (22-29); Chloride 107 mmol/L (96-108); Estimated Glomerular Filt Rate > 60; Glucose Random 90 mg/dL (60-115); Potassium 4.1 mmol/L (3.3-5.1); Sodium 140 mmol/L (135-145)
[2024-02-16 23:09] LABS: Vitamin D 25-OH, D2 <4 ng/mL; Vitamin D 25-OH, D3 34 ng/mL; Vitamin D 25-OH, Total 34 ng/mL (30-100)
== END 2024-02-12 09:05 | disposition home or self-care (01) ==
LOC: HO.LAB 09:04
PROVIDERS: PCP Internal Medicine; Visit Provider Student in an Organized Health Care Education/Training Program
DX: M81.0 Age-related osteoporosis without current pathological fracture (principal); Z13.21 Encounter for screening for nutritional disorder; Z20.2 Contact with and (suspected) exposure to infections with a predominantly sexual mode of transmission
CPT/HCPCS: 36415; 80053; 82306; 85025

== ENCOUNTER 2024-02-18 09:28 | Outpatient (AMB) | payer MEDICARE, SELFPAY ==
[2024-02-18 09:29] VITALS: BP 126/68; PULSE 76; TEMP 36.2; O2SAT 95; BMI 20.9
--- NOTE | 2024-02-18 09:29 | MHC.OFFVIS ---
Intake Vital Signs 02/18/24 09:29 Height 5 ft 3 in Weight 117 lb 15.157 oz BMI 20.9 BP 126/68 Blood Pressure Location Rt brachial Position Sitting Pulse 76 Pulse Source Pulse Oximeter Temp 97.2 F Temp Source Skin Pulse Oximetry (%) 95 Oxygen Delivery Method Room Air Intake Visit Reasons: follow up osteoporosis and prolia injection Intake Note: Patient last seen 08/07/23 presents today for follow up and test results. Received first prolia injection in office on 08/19/23. 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 Received her 1st Prolia injection in the office 08/2023, it was uneventful. She is doing well overall. She has no complaints today. No recent falls or fractures. Initial history: This is a 73-year-old female with osteoporosis who presents for osteoporosis evaluation. Patient stated that she has had osteoporosis for many years. She has been on Fosamax for 5-10 years. Patient stated that she broke her wrist when she was in 5th grade and had another risk fracture in her 40s. She had an ankle fracture last year when she slipped on the floor while dancing. Patient reached menopause in her 50s. Today patient has no complaints except for intermittent low back pain. She has known history of scoliosis. [facility] Medical History High cholesterol Surgical History H/O hand surgery Family History Mother Heart attack Ribeiro palsy Father No problems noted. Social History Household Members: Spouse Housing: House Alcohol intake: current Alcohol intake frequency: holidays/special occasions only Patient Tobacco Use Status: Former Tobacco user Quit Date: 1989 Current occupational status: retired Sexual orientation: Straight/Heterosexual Gender identity: Female Female Reproductive History Menstrual Age of Menarche: 10 Review of Systems Const All systems reviewed & are unremarkable except as noted in HPI and below Physical Exam Vital Signs: Last Vital Signs Temp 97.2 F 02/18/24 09:29 Pulse 76 02/18/24 09:29 BP 126/68 02/18/24 09:29 Pulse Ox 95 02/18/24 09:29 Oxygen Delivery Method Room Air 02/18/24 09:29 BMI result Body Mass Index 20.9 Const General: cooperative, healthy appearing and comfortable Nutritional Appearance: average body habitus Orientation/consciousness: patient oriented x3 Limitations: no limitations HEENT Head: Yes normocephalic and Yes atraumatic Resp Effort & Inspection: normal respiratory effort and able to speak in complete sentences Auscultation: clear to auscultation bilaterally Cardio Rate: regular rate Rhythm: regular rhythm Neuro General: patient oriented x3 Extrem Other: Osteoarthritic changes of both hands with no active synovitis Office Meds Prolia 60 mg/mL subcutaneous syringe Performing Provider: Giovani Cramer MD Performing Location: [facility] [place] Rheumatology Administered by: Paulina Dhaliwal RN on 02/18/24 09:52 Dose Route Admin Location Dispensed Lot Number Expiration Date [facility] Floor Care Technician 60 mg subcut left arm 1 mL [id number] 04/30/26 38369-277-28 AMGEN Results Reviewed Results Reviewed: DEXA 01/23 L-spine T-score -3.0 Left femoral neck T-score-2.4? Left femur total -2.5 DEXA 01/2021 L-spine T-score -1.2 Left femoral neck T-score-2.3? Left femur total -2.2 Assessment & Plan Assessment & Plan (1) Osteoporosis: Comment: Fosamax for more than 5 years, DEXA worsened prolia 08/2023 Code(s): M81.0 - Age-related osteoporosis without current pathological fracture Qualifiers: Osteoporosis type: age-related Presence of current pathological fracture: unspecified Qualified Code(s): M81.0 - Age-related osteoporosis without current pathological fracture Plan: This is a 73-year-old female with osteoporosis who presents for follow-up. She received her 1st Prolia injection 08/2023 it was uneventful. She is going to receive her 2nd Prolia injection in the office today. Vitamin-D level is a little low. She is taking he is taking 500 units of vitamin-D X 2 a day. Advised patient to increase it to 500 units x 4 a day. Continue calcium supplementation. Continue with weight-bearing exercise Labs before next visit in 6 months Plan I spent 16 minutes reviewing patient's chart, evaluating patient, ordering diagnostic workup, counseling patient and documenting in the chart Orders: Orders Comprehensive Met. Panel 6 Months M81.0 - Age-related osteoporosis without current pathological fracture AMB Denosumab Injection Practice Supplied Today M81.0 - Age-related osteoporosis without current pathological fracture Complete Blood Count Auto Diff 6 Months M81.0 - Age-related osteoporosis without current pathological fracture Vitamin D 25-OH (D2 and D3) 6 Months E55.9 - Vitamin D deficiency, unspecified Coding Level of Care Code Est Pt Level 3 (65048) Diagnoses Age related osteoporosis, unspecified pathological fracture presence M81.0 Osteoporosis type: age-related Presence of current pathological fracture: unspecified
== END 2024-02-18 09:51 | disposition home or self-care (01) ==
PROVIDERS: PCP Internal Medicine; Visit Provider Student in an Organized Health Care Education/Training Program
DX: M81.0 Age-related osteoporosis without current pathological fracture (principal)
CPT/HCPCS: 99213

== ENCOUNTER → 2024-02-18 09:28 | Outpatient (BNVA) | payer MEDICARE, SELFPAY | PROVIDERS: PCP Internal Medicine; Visit Provider Student in an Organized Health Care Education/Training Program | DX: M81.0 Age-related osteoporosis without current pathological fracture (principal) | CPT/HCPCS: 96372; 99212; J0897 ==

== ENCOUNTER 2024-08-12 08:27 | Outpatient (REF) | payer MEDICARE, SELFPAY ==
[2024-08-12 08:46] LABS: MANUAL DIFF FLAG NO
[2024-08-12 08:50] LABS: Basophils Absolute Auto 0.1 X10*3/uL (0.0-0.2); Basophils Percent Auto 1.2 % (0-2); Eosinophils Absolute Auto 0.1 X10*3/uL (0.0-0.4); Eosinophils Percent Auto 3.3 % (0-4); Hematocrit 36.4 % (37.0-47.0); Hemoglobin 11.9 g/dl (12.0-16.0); Imm Gran Abs Auto 0.01 X10*3/uL (0.00-0.03); Imm Gran Pct Auto 0.2 % (0.0-0.4); Lymphocytes Absolute Auto 1.8 X10*3/uL (1.2-4.9); Lymphocytes Percent Auto 42.5 % (20-40); Mean Corpuscular HGB Conc 32.7 g/dl (31.0-35.0); Mean Corpuscular Hemoglobin 29.7 pg (27.0-33.0); Mean Corpuscular Volume 90.8 fL (80.0-98.0); Mean Platelet Volume 8.7 fL (9.4-12.3); Monocytes Absolute Auto 0.5 X10*3/uL (0.1-1.2); Monocytes Percent Auto 12.7 % (2-11); Neutrophils Absolute Auto 1.7 x10*3/uL (2.0-8.3); Neutrophils Percent Auto 40.1 % (45-73); Platelet Count 233 X10*3/uL (160-400); Red Blood Count 4.01 X10*6/uL (4.20-5.50); Red Cell Distribution Width 14.6 % (11.0-16.0); White Blood Count 4.2 X10*3/uL (4.8-10.8)
[2024-08-12 09:25] LABS: Alanine Aminotransferase 14 U/L (0-31); Albumin Level 4.1 g/dL (3.5-5.0); Alkaline Phosphatase 57 U/L (39-117); Anion Gap 10 (12-20); Aspartate Amino Transferase 23 U/L (5-31); Bilirubin Total 0.5 mg/dL (0.0-1.0); Blood Urea Nitrogen 12 mg/dL (9-16); Calcium 9.3 mg/dL (8.4-10.2); Carbon Dioxide 28 mmol/L (22-29); Chloride 107 mmol/L (96-108); Estimated Glomerular Filt Rate > 60; Glucose Random 91 mg/dL (60-115); Potassium 4.2 mmol/L (3.3-5.1); Sodium 141 mmol/L (135-145); Total Protein 7.8 g/dL (6.5-8.0)
[2024-08-17 16:12] LABS: Vitamin D 25-OH, D2 <4 ng/mL; Vitamin D 25-OH, D3 59 ng/mL; Vitamin D 25-OH, Total 59 ng/mL (30-100)
== END 2024-08-12 08:28 | disposition home or self-care (01) ==
LOC: HO.LAB 08:27
PROVIDERS: PCP Internal Medicine; Visit Provider Student in an Organized Health Care Education/Training Program
DX: M81.0 Age-related osteoporosis without current pathological fracture (principal); E55.9 Vitamin D deficiency, unspecified
CPT/HCPCS: 36415; 80053; 82306; 85025

== ENCOUNTER 2024-08-24 09:14 | Outpatient (AMB) | payer MEDICARE, SELFPAY ==
--- NOTE | 2024-08-24 09:18 | MHC.OFFVIS ---
Vital Signs 08/24/24 09:26 Height 5 ft 3 in Weight 119 lb 0.794 oz BMI 21.1 BP 115/60 Blood Pressure Location Rt brachial Position Sitting Pulse 77 Pulse Source Pulse Oximeter Pulse Oximetry (%) 95 Oxygen Delivery Method Room Air Intake Visit Reasons: Osteoporosis/Prolia Intake Note: Patient presents for Osteoporosis/Prolia injection. Allergies No Known Allergies Allergy (Verified 08/24/24 09:26) Medication List - Last Reconciled 08/24/24 by Giovani Cramer MD calcium carbonate 600 mg PO DAILY cholecalciferol (vitamin D3) 2,000 units PO DAILY denosumab (Prolia) 60 mg subcut [id number] fluticasone propionate 50 mcg/actuation sprays intranasal glucosamine sulfate (Glucosamine) 500 mg PO DAILY omeprazole 40 mg PO DAILY rosuvastatin 20 mg PO DAILY HPI Comments Details: 74-year-old female with osteoporosis presents for follow-up. This is her 3rd dose. She is doing well overall. She has no complaints today. No recent falls or fractures. Initial history: This is a 73-year-old female with osteoporosis who presents for osteoporosis evaluation. Patient stated that she has had osteoporosis for many years. She has been on Fosamax for 5-10 years. Patient stated that she broke her wrist when she was in 5th grade and had another risk fracture in her 40s. She had an ankle fracture last year when she slipped on the floor while dancing. Patient reached menopause in her 50s. Today patient has no complaints except for intermittent low back pain. She has known history of scoliosis. [facility] Medical History High cholesterol Surgical History H/O hand surgery Family History Mother Heart attack Ribeiro palsy Father No problems noted. Social History Household Members: Spouse Housing: House Alcohol intake: current Alcohol intake frequency: holidays/special occasions only Patient Tobacco Use Status: Former Tobacco user Current occupational status: retired Sexual orientation: Straight/Heterosexual Gender identity: Female Female Reproductive History Menstrual Age of Menarche: 10 Review of Systems [facility] no additional complaints Physical Exam Vital Signs: Last Vital Signs Pulse 77 08/24/24 09:26 BP 115/60 08/24/24 09:26 Pulse Ox 95 08/24/24 09:26 Oxygen Delivery Method Room Air 08/24/24 09:26 BMI result Body Mass Index 21.1 Const General: cooperative, healthy appearing and comfortable Nutritional Appearance: average body habitus Orientation/consciousness: patient oriented x3 Limitations: no limitations HEENT Head: Yes normocephalic and Yes atraumatic Resp Effort & Inspection: normal respiratory effort and able to speak in complete sentences Auscultation: clear to auscultation bilaterally Cardio Rate: regular rate Rhythm: regular rhythm Neuro General: patient oriented x3 Extrem Other: Osteoarthritic changes of both hands with no active synovitis Office Meds Prolia 60 mg/mL subcutaneous syringe Performing Provider: Giovani Cramer MD Performing Location: [facility] [place] Administered by: Giovani Cramer MD on 08/24/24 09:47 Dose Route Admin Location Dispensed Lot Number Expiration Date [facility] Dye Penetrant Testing Technician 60 mg subcut LT arm 1 mL [id number] 10/30/26 57611-553-08 AMGEN Results Reviewed Results Reviewed: DEXA 01/23 L-spine T-score -3.0 Left femoral neck T-score-2.4? Left femur total -2.5 DEXA 01/2021 L-spine T-score -1.2 Left femoral neck T-score-2.3? Left femur total -2.2 Assessment & Plan Assessment & Plan (1) Osteoporosis: Comment: Fosamax for more than 5 years, DEXA worsened prolia 08/2023 Code(s): M81.0 - Age-related osteoporosis without current pathological fracture Category: Medical Qualifiers: Osteoporosis type: age-related Presence of current pathological fracture: unspecified Qualified Code(s): M81.0 - Age-related osteoporosis without current pathological fracture Plan: This is a 74-year-old female with osteoporosis who presents for follow-up. She received her 3rd Prolia injection in clinic today. Vitamin-D level is at target. She is on 2000 units daily. Continue the same dose. Continue calcium supplementation. Continue with weight-bearing exercise Labs before next visit in 6 months Plan to repeat DEXA scan in the spring Plan I spent 16 minutes reviewing patient's chart, evaluating patient, ordering diagnostic workup, counseling patient and documenting in the chart Orders: Orders Basic Metabolic Panel 6 Months M81.0 - Age-related osteoporosis without current pathological fracture AMB Denosumab Injection Patient Supplied Today M81.0 - Age-related osteoporosis without current pathological fracture Vitamin D 25-OH (D2 and D3) 6 Months E55.9 - Vitamin D deficiency, unspecified Coding Level of Care Code Est Pt Level 3 (55115) Diagnoses Age related osteoporosis, unspecified pathological fracture presence M81.0 Osteoporosis type: age-related Presence of current pathological fracture: unspecified
[2024-08-24 09:26] VITALS: BP 115/60; PULSE 77; O2SAT 95; BMI 21.1
== END 2024-08-24 09:45 | disposition home or self-care (01) ==
LOC: HO.RHE 09:14
PROVIDERS: PCP Internal Medicine; Visit Provider Student in an Organized Health Care Education/Training Program
DX: M81.0 Age-related osteoporosis without current pathological fracture (principal)
CPT/HCPCS: 99213

== ENCOUNTER → 2024-08-24 09:14 | Outpatient (BNVA) | payer MEDICARE, SELFPAY | PROVIDERS: PCP Internal Medicine; Visit Provider Student in an Organized Health Care Education/Training Program | DX: M81.0 Age-related osteoporosis without current pathological fracture (principal) | CPT/HCPCS: 96372; 99212; J0897 ==

== ENCOUNTER 2025-01-24 08:17 | Outpatient (REF) | payer MEDICARE, SELFPAY | END 2025-01-24 08:18 | disposition home or self-care (01) | LOC: HO.MAMMO 08:17 | PROVIDERS: PCP Internal Medicine; Visit Provider Internal Medicine | DX: Z12.31 Encounter for screening mammogram for malignant neoplasm of breast (principal) | CPT/HCPCS: 77063; 77067 ==

== ENCOUNTER → 2025-01-24 08:30 | Outpatient (BNV) | payer MEDICARE, SELFPAY | PROVIDERS: PCP Internal Medicine; Visit Provider Internal Medicine | DX: Z12.31 Encounter for screening mammogram for malignant neoplasm of breast (principal) | CPT/HCPCS: 77063; 77067 ==

== ENCOUNTER 2025-02-11 08:32 | Outpatient (REF) | payer MEDICARE, SELFPAY ==
[2025-02-11 10:07] LABS: Anion Gap 11 (12-20); Blood Urea Nitrogen 15 mg/dL (9-16); Calcium 9.1 mg/dL (8.4-10.2); Carbon Dioxide 27 mmol/L (22-29); Chloride 109 mmol/L (96-108); Estimated Glomerular Filt Rate > 60; Glucose Random 90 mg/dL (60-115); Potassium 4.5 mmol/L (3.3-5.1); Sodium 142 mmol/L (135-145)
[2025-02-19 14:44] LABS: Vitamin D 25-OH, D2 <4 ng/mL; Vitamin D 25-OH, D3 54 ng/mL; Vitamin D 25-OH, Total 54 ng/mL (30-100)
== END 2025-02-11 08:33 | disposition home or self-care (01) ==
LOC: HO.LAB 08:32
PROVIDERS: PCP Internal Medicine; Visit Provider Student in an Organized Health Care Education/Training Program
DX: E55.9 Vitamin D deficiency, unspecified (principal); M81.0 Age-related osteoporosis without current pathological fracture
CPT/HCPCS: 36415; 80048; 82306

== ENCOUNTER 2025-02-25 07:21 | Outpatient (AMB) | payer MEDICARE, SELFPAY ==
[2025-02-25 07:33] VITALS: BP 116/78; PULSE 73; O2SAT 100; BMI 20.7
--- NOTE | 2025-02-25 07:33 | MHC.OFFVIS ---
Vital Signs 02/25/25 07:33 Height 5 ft 3 in Weight 117 lb 1.047 oz BMI 20.7 BP 116/78 Blood Pressure Location Lt brachial Position Sitting Pulse 73 Pulse Source Pulse Oximeter Pulse Oximetry (%) 100 Oxygen Delivery Method Room Air Intake Visit Reasons: osteoporosis/prolia Intake Note: Patient presents for her Prolia injection for her osteoporosis. She was last seen in the office on 08/24/[address] Cramer. Allergies No Known Allergies Allergy (Verified 02/25/25 07:35) Medication List - Last Reconciled 02/25/25 by Kacie Osborne MD calcium carbonate 600 mg PO DAILY cholecalciferol (vitamin D3) 2,000 units PO DAILY denosumab (Prolia) 60 mg subcut [id number] fluticasone propionate 50 mcg/actuation sprays intranasal glucosamine sulfate (Glucosamine) 500 mg PO DAILY omeprazole 40 mg PO DAILY rosuvastatin 20 mg PO DAILY HPI Comments Details: Patient is a 74-year-old female with GERD, hyperlipidemia and osteoporosis here today for follow up Interval History: Patient last seen 08/[address] Cramer. At that time she received her 3rd dose of Prolia. No falls or fractures. Today she is here for her 4th dose of Prolia. Again reports no falls or fractures Goes to the gym with her 6 days a week does 1 mi on the treadmill and then works her way around on the machines Also does dance classes Rheumatologic History: prison history of osteoporosis and was on Fosamax for more than 5 years however DEXA in 2022 worsened Prolia started 08/2023 Current Rheumatology Medication(s): Prolia 60 mg sc once every 6 months Vitamin-D Calcium PFSH Medical History High cholesterol Surgical History H/O hand surgery Family History Mother Heart attack Ribeiro palsy Father No problems noted. Social History Household Members: Spouse Housing: House Alcohol intake: current Alcohol intake frequency: holidays/special occasions only Patient Tobacco Use Status: Former Tobacco user Current occupational status: retired Sexual orientation: Straight/Heterosexual Gender identity: Female Female Reproductive History Menstrual Age of Menarche: 10 Review of Systems Const Details: Review of Systems Constitutional: Denies fever, chills, weight loss ENT: Denies vision changes, eye pain or eye redness, dental caries, dry mouth GI: Denies nausea, vomiting, diarrhea, abdominal pain, change in BM Pulm: Denies SOB, NGUYEN, hemoptysis, wheezing Cards: Denies chest pain, palpitations Skin: Denies Raynaud's, rash, nail changes, photosensitivity, LIGHT ARMORED RECONNAISSANCE OFFICER: Denies headaches, weakness, paresthesias, recurrent falls MSK: as per HPI All other systems reviewed and are unremarkable except noted above Physical Exam Vital Signs: Last Vital Signs Pulse 73 02/25/25 07:33 BP 116/78 02/25/25 07:33 Pulse Ox 100 02/25/25 07:33 Oxygen Delivery Method Room Air 02/25/25 07:33 BMI result Body Mass Index 20.7 Vital signs reviewed Physical Examination CONSTITUITIONAL Patient alert and cooperative. Well appearing and in no apparent painful distress HEENT Conjunctiva and sclera clear. ?Pupils equal round and reactive to light. ?No lymphadenopathy. ? CHEST/RESPIRATORY SYSTEM Normal respiratory effort and able to speak in complete sentences. ?Clear to auscultation bilaterally. ?No crackles, rales, rhonchi, wheezes heard. CARDIAC SYSTEM Regular rate and rhythm. ?S1 and S2 heard no murmurs. 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 No deformities noted. ?No synovitis noted to the MCPs, PIPs or DIPs. ?No tenderness to palpation of these joints. Wrists: ?Full range of motion at the wrists without pain. ?No tenderness to palpation or synovitis noted to the wrists. Elbows: Full range of motion without pain. No tenderness, weakness, swelling, increased warmth or erythema. Shoulders: Full range of motion without pain. No tenderness, weakness, swelling, increased warmth or erythema. Hips: Full range of motion without pain. Hip bursa: No tenderness to palpation Knees: ?Full range of motion. ?No tenderness, swelling, increased warmth or erythema.?No effusion or crepitations Ankles: Full range of motion. ?No tenderness, swelling, increased warmth or erythema.? Feet: ?Negative squeeze test. ?No tenderness to palpation or swelling of the MTPs. Tender points:?No tenderness to palpation of the bilateral trapezius, supraspinatus, greater trochanters, anterior costochondral junctions, bilateral gluteal areas, bilateral suboccipital muscle insertions SKIN Skin intact without rashes. Office Meds Prolia 60 mg/mL subcutaneous syringe Performing Provider: Kacie Osborne MD Performing Location: [facility] [place] Rheumatology Administered by: Kacie Osborne MD on 02/25/25 08:07 Dose Route Admin Location Dispensed Lot Number Expiration Date [place] Carroting Machine Offbearer 60 mg subcut left deltoid 1 mL [id number] 06/30/27 79419-796-26 AMGEN Results Reviewed Results Reviewed: Laboratory Tests 02/11/25 08:47 Sodium 142 Potassium 4.5 Chloride 109 H Carbon Dioxide 27 BUN 15 Creatinine 0.73 Calcium 9.1 25-OH Vitamin D Total 54 DEXA 01/2023 FINDINGS: AP SPINE L1-L2 (excluding L3 and L4): The data of L1-L4 has been changed to exclude the L3 and L4 vertebral bodies, because degenerative changes at these levels may cause overestimation of lumbar spine density. Current: BMD 0.810 g/cm2, Z-score -0.9, T-score -3.0, osteoporosis, 0.1% decrease from previous, 0.4% decrease from baseline (<5% change is not significant). Prior: BMD 0.811 g/cm2. Baseline: BMD 0.813 g/cm2. LEFT FEMUR, NECK: Current: BMD 0.701 g/cm2, Z-score -0.3, T-score -2.4, osteopenia. Prior: BMD 0.724 g/cm2. Baseline: BMD 0.764 g/cm2. LEFT FEMUR, TOTAL: Current: BMD 0.688 g/cm2, Z-score -0.6, T-score -2.5, osteoporosis, 5.8% decrease from previous, 7.4% decrease from baseline (<5% change is not significant). Prior: BMD 0.730 g/cm2. Baseline: BMD 0.743 g/cm2. Assessment & Plan Assessment & Plan (1) Osteoporosis: Comment: DEXA 01/2021: AP Spine -1.2, Left femur neck -2.3, Left femur total -2.2 Fosamax for more than 5 years, DEXA worsened in the AP spine DEXA 01/2023: AP Spine -3.0, Left femur neck -2.4, Left femur total -2.5 Prolia 08/2023 Code(s): M81.0 - Age-related osteoporosis without current pathological fracture Category: Medical Qualifiers: Osteoporosis type: age-related Presence of current pathological fracture: unspecified Qualified Code(s): M81.0 - Age-related osteoporosis without current pathological fracture Plan: #Osteoporosis Patient is a 74 y.o. female with osteoporosis here today for follow up. Patient is due for her 4th dose of Prolia. And a repeat DEXA Has had no fractures and is overall doing well. 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 Mild increased risk of infections due to RANKL on T helper cells, increased risk of hypocalcemia especially in CKD patients Keep vitamin-D at least 35 ng/mL Advised to delay non emergent dental procedures to toward the end of the 6 month cycle and if they plan to stop denosumab would need to continue antiresorptive to maintain the effects of denosumabe Plan I spent 25 minutes reviewing the record and labs, taking a history, examining the patient, discussing the treatment plan, ordering diagnostic work up and documenting in the medical record Orders: Orders XR DEXA axial skeleton Today M81.0 - Age-related osteoporosis without current pathological fracture Vitamin D 25-OH Total 6 Months M81.0 - Age-related osteoporosis without current pathological fracture Comprehensive Met. Panel 6 Months M81.0 - Age-related osteoporosis without current pathological fracture AMB Denosumab Injection Practice Supplied Today M81.0 - Age-related osteoporosis without current pathological fracture Medications: New Prolia (denosumab) 60 mg subcut ONCE 1 mL 0RF NS M81.0 - Age-related osteoporosis without current pathological fracture Coding Level of Care Code Est Pt Level 3 (47806) Complex EM visit Add On G2211 Diagnoses Age related osteoporosis, unspecified pathological fracture presence M81.0 Osteoporosis type: age-related Presence of current pathological fracture: unspecified Encounter for monitoring denosumab therapy Z51.81; Z79.620
== END 2025-02-25 07:53 | disposition home or self-care (01) ==
LOC: HO.RHE 07:22
PROVIDERS: PCP Internal Medicine; Visit Provider Student in an Organized Health Care Education/Training Program
DX: M81.0 Age-related osteoporosis without current pathological fracture (principal); Z51.81 Encounter for therapeutic drug level monitoring; Z79.620 Long term (current) use of immunosuppressive biologic
CPT/HCPCS: 99213; G2211

== ENCOUNTER → 2025-02-25 07:21 | Outpatient (BNVA) | payer MEDICARE, SELFPAY | PROVIDERS: PCP Internal Medicine; Visit Provider Student in an Organized Health Care Education/Training Program | DX: M81.0 Age-related osteoporosis without current pathological fracture (principal); Z51.81 Encounter for therapeutic drug level monitoring; Z79.620 Long term (current) use of immunosuppressive biologic | CPT/HCPCS: 96372; 99212; J0897 ==

== ENCOUNTER 2025-03-25 08:06 | Outpatient (REF) | payer MEDICARE, SELFPAY ==
--- NOTE | ~2025-03-25 | MM_ITS ---
EXAMINATION: DXA BONE DENSITY AXIAL HISTORY: M81.0 - Age-related osteoporosis without current pathological fracture TECHNIQUE: The [employer] Dual energy absorptiometry (DEXA) of the lumbar spine, total left hip, and femoral neck was performed. COMPARISON: Comparison is made with the prior examination dated 01/21/2023. FINDINGS: The bone mineral density of the lumbar spine is 0.761 with a T-score of -3.4, and a Z-score of -1.2. This is indicative of osteoporosis. This represents a BMD change of -6.0% compared to the prior exam. This is not statistically significant. The bone mineral density of the left total hip is 0.716 with a T-score of -2.3, and a Z-score of -0.2. This is indicative of osteopenia. This represents a BMD change of 4.1% compared to the prior exam. This is statistically significant. The bone mineral density of the left femoral neck is 0.740 with a T-score of -2.1, and a Z-score of 0.1. This is indicative of osteopenia. This represents a BMD change of 5.6% compared to the prior exam. MM/XR DEXA axial skeleton IMPRESSION: Based on bone mineral density, and according to World Health Organization (WHO) criteria, the diagnosis is consistent with osteoporosis. All bone density values are in grams per centimeter squared (g/cm2). Statistically, 68% of repeat scans fall within 1 SD (+/- 0.010 g/cm2 for AP spine L1-L4) and 1 SD (+/- 0.012 g/cm2 for femur total) FRAX is a trademark of the [employer]'s [place] [facility] Metabolic Bone Disease, a World Health Organization (WHO) Collaborating Center. Electronically signed by: Viraj Butt MD 03/25/2025 10:00 AM EDT
== END 2025-03-25 08:07 | disposition home or self-care (01) ==
LOC: HO.MAMMO 08:06
PROVIDERS: PCP Internal Medicine; Visit Provider Student in an Organized Health Care Education/Training Program
DX: M81.0 Age-related osteoporosis without current pathological fracture (principal)
CPT/HCPCS: 77080

== ENCOUNTER → 2025-03-25 08:15 | Outpatient (BNV) | payer MEDICARE, SELFPAY | PROVIDERS: PCP Internal Medicine; Visit Provider Radiology Diagnostic Radiology | DX: E28.39 Other primary ovarian failure (principal) | CPT/HCPCS: 77080 ==

== ENCOUNTER 2025-04-07 09:06 | Outpatient (AMB) | payer MEDICARE, SELFPAY ==
--- NOTE | 2025-04-07 09:07 | MHC.OFFVIS ---
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 No complaints. Last Pap/HPV was many years ago, no history of abnormal Pap smear , the patient had adequate screening 10 years prior to the age of 63 Last Mammogram was BI-RADS 2 in 01/25 Last Colonoscopy was 6 years ago, the patient is not due for another screening colonoscopy according to her, no records available Last DEXA scan was in 03/25 [facility] Medical History High cholesterol Surgical History H/O hand surgery Family History Mother Heart attack Ribeiro palsy Father No problems noted. Social History Household Members: Spouse Housing: House Alcohol intake: current Alcohol intake frequency: holidays/special occasions only Patient Tobacco Use Status: Former Tobacco user Patient : No Current occupational status: retired Sexual orientation: Straight/Heterosexual Gender identity: Female Female Reproductive History Menstrual Age of Menarche: 10 Total pregnancies: 2 Full term: 2 Date of last pap smear: 08/24/13 (negative ) Date of Mammogram: 01/24/25 (bi rad 2) Date of last Bone Density Screenin03/25/25 Review of Systems Const All systems reviewed & are unremarkable except as noted in HPI and below Card Reports as per HPI Resp Reports as per HPI GI Reports as per HPI and Reports no additional complaints Reports as per HPI Physical Exam Vital Signs: Last Vital Signs BP 130/70 04/07/25 09:10 BMI result Body Mass Index 20.7 Const General: cooperative, healthy appearing and comfortable Chest Chest palpation & inspection: normal inspection of the chest and normal palpation of entire chest wall Breast/axilla inspection: normal inspection of the breasts and normal inspection of the axillae Breast/axilla palpation: normal palpation of the breasts, normal palpation of the axillae and no axillary lymphadenopathy Resp Effort & Inspection: normal respiratory effort Auscultation: clear to auscultation bilaterally Percussion: percussion normal Cardio Palpation: normal PMI Rate: regular rate Rhythm: regular rhythm Heart sounds: no murmurs and no rubs Peripheral pulses: Peripheral pulses 2+ throughout GI Inspection: Yes normal to inspection Palpation (GI): Soft to palpation, nontender, no guarding, not rigid and No hepatosplenomegaly present Percussion: Yes normal to percussion Auscultation: normal bowel sounds Rectal Exam - Female: deferred General: Yes bladder normal to palpation External Female Exam: No lesion Speculum Exam - Vagina: normal appearance of the vagina, normal palpation, normal vaginal discharge and not erythematous Speculum Exam - Cervix: normal appearance of the cervix and normal palpation Bimanual exam- vagina & uterus: normal bimanual exam, normal palpation, uterine size normal, bladder normal to palpation, consistency normal and normal palpation Bimanual Exam- Adnexa, other: normal adnexae, no masses and no tenderness Assessment & Plan Assessment & Plan (1) Well woman exam: Code(s): Z01.419 - Encounter for gynecological examination (general) (routine) without abnormal findings Category: Medical Plan: Co testing not indicated since the patient 's age is above 65 with no history of abnormal Pap smears last 25 years, adequately screen for the last 10 years with no history of immunosuppression. Counseled the patient about the recommended dietary allowance of 1200 mg of Calcium & 800 IU of vitamin D. Instructions given the patient to schedule next screening Mammogram in 01/26. The patient was instructed to perform monthly self-breast exams and to schedule an annual exam in a year; All questions answered and the patient verbalized understanding. Coding Level of Care Code Est Pt Prev Care >65y(63211) Diagnoses Well woman exam Z01.419
[2025-04-07 09:10] VITALS: BP 130/70; BMI 20.7
== END 2025-04-07 09:41 | disposition home or self-care (01) ==
LOC: HO.HWS 09:06
PROVIDERS: PCP Internal Medicine; Visit Provider Obstetrics & Gynecology
DX: Z01.419 Encounter for gynecological examination (general) (routine) without abnormal findings (principal)
CPT/HCPCS: 99397; 99459

== ENCOUNTER → 2025-04-07 09:06 | Outpatient (BNVA) | payer MEDICARE, SELFPAY | PROVIDERS: PCP Internal Medicine; Visit Provider Obstetrics & Gynecology | DX: Z01.419 Encounter for gynecological examination (general) (routine) without abnormal findings (principal) | CPT/HCPCS: 99397; 99459 ==

== ENCOUNTER 2025-08-16 14:39 | Outpatient (REF) | payer MEDICARE, SELFPAY ==
--- NOTE | ~2025-08-16 | US_ITS ---
EXAMINATION(S): 1. MM DIAGNOSTIC DIGITAL BREAST TOMOSYNTHESIS, RIGHT 2. Targeted ultrasound of the right breast CLINICAL INFORMATION: Right breast lump at 4-5 o'clock COMPARISON: Comparison made to multiple prior, most recent January 24, 2025, and most remote December 31, 2022. TECHNIQUE: Digital breast tomosynthesis is performed in both the mediolateral oblique and craniocaudal views along with computer-aided detection (CAD). Synthesized 2D images are generated from the tomosynthesis. Skin BB marker was placed at the location of the palpable concern as indicated by the patient in the lower inner quadrant. FINDINGS: BREAST COMPOSITION: The breasts are heterogeneously dense, which may obscure small masses (ACR BI-RADS breast composition Category c). RIGHT BREAST: No significant masses, suspicious calcifications or other abnormalities are seen. In particular, no suspicious abnormality adjacent to the skin BB marker in the lower inner quadrant. Targeted ultrasound of the right breast was performed at the location of the palpable concern as indicated by the patient. The survey was centered at 4-5 o'clock at 7 cm from the nipple. No suspicious sonographic findings seen. US/US breast RT limited mamm only IMPRESSION: RIGHT BREAST: Negative, no evidence of malignancy. Clinical follow-up is recommended. Otherwise, return to routine screening mammogram expected in January 2026. ASSESSMENT: BI-RADS 1 - Negative RECOMMENDATION: 1. Patient should be managed based on the clinical impression. 2. Otherwise, routine annual screening mammography. Results were provided to the patient at time of visit by the technologist. This patient's information was entered into a reminder system with a target due date for their next mammogram. Electronically signed by: Kyle Owens MD 08/16/2025 04:42 PM EDT
--- OUTSIDE RECORDS SUMMARY | 2025-08-16 18:21 | XMS_ITS | Clinical Summary ---
Author Organization [facility] Address [address] [id number] Phone Care Team Providers Care Cook Apprentice Pastry Name Role Phone Francis Burgess MD Primary Care Provider Allergies No known active allergies Medications fluticasone propionate (FLONASE) 50 mcg/actuation nasal spray 09/23/2024 Active omeprazole (PRILOSEC) 40 MG capsule 07/12/2024 Active rosuvastatin (CRESTOR) 20 MG tablet 07/29/2024 Active Immunizations Immunization Administration Dates Next Due Influenza High-Dose Quadriva lent Preservative Free IM 09/19/2023,09/20/2022,09/08/2021,08/28 Influenza High-Dose Trivalen t Preservative Free IM 08/20/2024,09/09/2019,09/02/2018 Pneumococcal conjugate PCV13 02/14/2017 Pneumococcal conjugate PCV20 06/30/2023 Pneumococcal polysaccharide PPSV23 08/28/2020 RSV Vaccine (monovalent, adjuvanted) 07/13/2024 Tdap 03/23/2021 Zoster recombinant 08/24/2019,02/24/2019 Social History Tobacco Use Types Packs/Day Years Used Date Smoking Tobacco: Never Smokeless Tobacco: Never Education Answer Date Recorded Are you interested in more education? Not on radha e 10/01/2024 Are you concerned about learning? Not on file 10/01/2024 No 10/01/2024 No 10/01/2024 Digital Access Answer Date Recorded No 10/01/2024 No 10/01/2024 Reliable internet access at home? Not on file 10/01/2024 Device with a working camera? Not on file Comments Unknown Sex and Gender Information Value Date Recorded Sex Assigned at Not on file Legal Sex Female 8:02 AM EDT Gender Identity Not on file Sexual Orientation Not on file Last Filed Vital Signs Vital Sign Reading Time Taken Comments Blood Pressure 129/82 10/01/2024 8:25 AM EDT Pulse 88 10/01/2024 8:25 AM EDT Temperature 36.6 C (97.9 F) 10/01/2024 8:25 AM EDT Respiratory Rate 18 10/01/2024 8:25 AM EDT Oxygen Saturation 100% 10/01/2024 8:25 AM EDT Inhaled Oxygen Concentration - - Weight - - Height - - Body Mass Index - - Plan of Treatment Health Maintenance Due Date Last Done Comments LIPID PANEL 1948 DEPRESSION SCREENING 1960 HEPATITIS C SCREENING 1966 OSTEOPOROSIS SCREENING INITIAL (ONE-TIME) 2013 INFLUENZA VACCINE (#1) 2025 , 09/19/2023, 09/20/2022, Additional history exists COVID-19 VACCINE ( season) 2025 09/09/2024, 09/05/2023, 09/20/2022, Additional history exists Adult Td,Tdap Booster 03/23/2031 03/23/2021 ZOSTER VACCINES Completed 08/24/2019, 02/24/2019 PNEUMOCOCCAL VACCINES (50+ years) Completed 06/30/2023, 08/28/2020, 02/14/2017 RSV VACCINE Completed 07/13/2024 SMOKING STATUS SCREENING (Once After 26 Yrs) Completed 10/01/2024 HEPATITIS A VACCINES Aged Out No long er eligible based on patient's age to complete this topic HIB VACCINES Aged Out No longer eligi ble based on patient's age to complete this topic MENINGOCOCCAL VACCINES (ACWY) Aged Out No longer eligible based on patient's age to complete this topic MENINGOCOCCAL VACCINES (B) Aged Out N o longer eligible based on patient's age to complete this topic Medical Devices Not on file Insurance PPO AARP MEDICARE REPLACEMENT MEDICARE REPLACEMENT MEDICARE REPLACEMENT MEDICARE REPLACEMENT Care Teams Cook Apprentice Pastry Relationship Specialty Start Date End Date Francis Burgess MD [address] [place] [address] PCP - General Internal Medicine 10/01/24 Additional Source Comments The information contained in this document represents components of the legal health record. It is not the complete legal health record.[facility]
== END 2025-08-16 14:40 | disposition home or self-care (01) ==
LOC: HO.MAMMO 14:39
PROVIDERS: PCP Internal Medicine; Visit Provider Internal Medicine
DX: N63.15 Unspecified lump in the right breast, overlapping quadrants (principal)
CPT/HCPCS: 76642; 77061; 77065

== ENCOUNTER → 2025-08-16 15:00 | Outpatient (BNV) | payer MEDICARE, SELFPAY | PROVIDERS: PCP Internal Medicine; Visit Provider Radiology Body Imaging | DX: N63.14 Unspecified lump in the right breast, lower inner quadrant (principal) | CPT/HCPCS: 76642; 77065; G0279 ==

== ENCOUNTER 2025-08-23 07:56 | Outpatient (REF) | payer MEDICARE, SELFPAY ==
--- OUTSIDE RECORDS SUMMARY | 2025-08-23 08:00 | XMS_ITS | Clinical Summary ---
Author Organization [facility] Address [address] [phone] Phone Care Team Providers Care Small Parts Assembler Name Role Phone Francis Burgess MD Primary [...] REPLACEMENT MEDICARE REPLACEMENT MEDICARE REPLACEMENT Care Teams Small Parts Assembler Relationship Specialty Start Date End Date Francis Burgess MD [address] [place] [address] PCP - General Internal Medicine 10/01/24 Additional Source Comments The information contained in this document represents components of the legal health record. It is not the complete legal health record.[facility]
== END 2025-08-23 07:57 | disposition home or self-care (01) ==
LOC: HO.LAB 07:56
PROVIDERS: PCP Internal Medicine; Visit Provider Student in an Organized Health Care Education/Training Program
DX: M81.0 Age-related osteoporosis without current pathological fracture (principal)
CPT/HCPCS: 36415; 80053; 82306

== ENCOUNTER 2025-08-25 08:25 | Outpatient (AMB) | payer MEDICARE, SELFPAY ==
[2025-08-25 08:45] VITALS: BMI 20.2
--- NOTE | 2025-08-25 08:45 | A.OFFVIS_ITS ---
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 The patient was evaluated by PCP right breast ultrasound diagnostic mammogram were done and came back as BI-RADS 1, 01/25 screening mammogram was BI-RADS 2 [facility] Medical History High cholesterol Surgical History (Reviewed 04/07/25 @ :25 by Frank Soria MD) H/O hand surgery Family History Mother Heart attack Ribeiro palsy Father No problems noted. Social History Household Members: Spouse Housing: House Alcohol intake: current Alcohol intake frequency: holidays/special occasions only Patient Tobacco Use Status: Former Tobacco user Current occupational status: retired Sexual orientation: Straight/Heterosexual Gender identity: Female Female Reproductive History Menstrual Age of Menarche: 10 Physical Exam Vital Signs: BMI result Body Mass Index 20.2 Chest Chest palpation & inspection: normal inspection of the chest Breast/axilla inspection: inspection of breasts abnormal (Right breast 05:00 lump 8 cm from nipple, left breast within normal) Assessment & Plan Assessment & Plan (1) Breast lump on right side at 5 o'clock position: Comment: 8 cm from the nipple Code(s): N63.14 - Unspecified lump in the right breast, lower inner quadrant Category: Medical Plan: Discussed with the patient the finding on breast exam, right breast ultrasound and right testing mammogram, refer to breast surgery for further management Instructed the patient to call our office back in case a referral appointment is not scheduled, missed or canceled so that we will assist on rescheduling another appointment, the patient verbalized understanding agreed with the plan. Orders: Referrals General Surgery Referral N63.14 - Unspecified lump in the right breast, lower inner quadrant Coding Level of Care Code Est Pt Level 3 (39170) Diagnoses Breast lump on right side at 5 o'clock position N63.14
--- OUTSIDE RECORDS SUMMARY | 2025-08-25 08:56 | XMS_ITS | Clinical Summary ---
Author Organization [facility] Address [address] [phone] Phone Care Team Providers Care Party Plan Dealer Name Role Phone Francis Burgess MD Primary [...] REPLACEMENT MEDICARE REPLACEMENT MEDICARE REPLACEMENT Care Teams Party Plan Dealer Relationship Specialty Start Date End Date rFancis Burgess MD [address] [place] [address] PCP - General Internal Medicine 10/01/24 Additional Source Comments The information contained in this document represents components of the legal health record. It is not the complete legal health record.[facility]
== END 2025-08-25 09:20 | disposition home or self-care (01) ==
LOC: HO.HWS 08:25
PROVIDERS: PCP Internal Medicine; Visit Provider Obstetrics & Gynecology
DX: N63.14 Unspecified lump in the right breast, lower inner quadrant (principal)
CPT/HCPCS: 99213

== ENCOUNTER → 2025-08-25 08:25 | Outpatient (BNVA) | payer MEDICARE, SELFPAY | PROVIDERS: PCP Internal Medicine; Visit Provider Obstetrics & Gynecology | DX: N63.14 Unspecified lump in the right breast, lower inner quadrant (principal); Z87.891 Personal history of nicotine dependence | CPT/HCPCS: 99212 ==

== ENCOUNTER 2025-08-30 07:45 | Outpatient (AMB) | payer MEDICARE, SELFPAY ==
--- OUTSIDE RECORDS SUMMARY | 2025-08-30 07:54 | XMS_ITS | Clinical Summary ---
Author Organization [facility] Address [address] [phone] Phone Care Team Providers Care Beauty Advisor Name Role Phone Francis Burgess MD Primary [...] REPLACEMENT MEDICARE REPLACEMENT MEDICARE REPLACEMENT Care Teams Beauty Advisor Relationship Specialty Start Date End Date Francis Burgess MD [address] [place] [address] PCP - General Internal Medicine 10/01/24 Additional Source Comments The information contained in this document represents components of the legal health record. It is not the complete legal health record.[facility]
--- NOTE | 2025-08-30 07:55 | A.OFFVIS_ITS ---
Vital Signs 08/30/25 08:05 Height 5 ft 3 in Weight 115 lb 11.883 oz BMI 20.5 BP 120/62 Blood Pressure Location Rt brachial Position Sitting Pulse 72 Pulse Source Pulse Oximeter Pulse Oximetry (%) 99 Oxygen Delivery Method Room Air Intake Visit Reasons: osteoporosis/prolia inj Intake Note: Patient presents for Osteoporosis and Prolia injection follow up. Allergies No Known Allergies Allergy (Verified 08/30/25 08:05) Medication List - Last Reconciled 08/30/25 by Kacie Osborne MD calcium carbonate 600 mg PO DAILY cholecalciferol (vitamin D3) 2,000 units PO DAILY fluticasone propionate 50 mcg/actuation sprays intranasal glucosamine sulfate (Glucosamine) 500 mg PO DAILY omeprazole 40 mg PO DAILY romosozumab-aqqg (Evenity) 210 mg (2.34 mL) subcut QMONTH 1 month rosuvastatin 20 mg PO DAILY HPI Comments Details: Patient is a 75-year-old female with GERD, hyperlipidemia and osteoporosis here today for follow up Interval History: Patient last seen 02/25/25 with me - On Prolia 60mg every 6 months - Reports no falls or fractures - Goes to the gym with her 6 days a week does 1 mi on the treadmill and then works her way around on the machines - Also does dance classes - DEXA scan ordered Today - On Prolia 60mg every 6 months - Reports no falls or fractures - Goes to the gym with her 6 days a week does 1 mi on the treadmill and then works her way around on the machines - Also does dance classes - DEXA scan worsening AP spine Rheumatologic History: emt intermediate history of osteoporosis and was on Fosamax for more than 5 years however DEXA in 2022 worsened Prolia started 08/2023 Current Rheumatology Medication(s): Prolia 60 mg sc once every 6 months Vitamin-D Calcium PFSH Medical History High cholesterol Surgical History H/O hand surgery Family History Mother Heart attack Ribeiro palsy Father No problems noted. Social History Household Members: Spouse Housing: House Alcohol intake: current Alcohol intake frequency: holidays/special occasions only Patient Tobacco Use Status: Former Tobacco user Current occupational status: retired Sexual orientation: Straight/Heterosexual Gender identity: Female Female Reproductive History Menstrual Age of Menarche: 10 Review of Systems Const Details: Review of Systems Constitutional: Denies fever, chills, weight loss ENT: Denies vision changes, eye pain or eye redness, dental caries, dry mouth GI: Denies nausea, vomiting, diarrhea, abdominal pain, change in BM Pulm: Denies SOB, NGUYEN, hemoptysis, wheezing Cards: Denies chest pain, palpitations Skin: Denies Raynaud's, rash, nail changes, photosensitivity, 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 Well appearing and in no apparent painful distress MSK Hands * Right Hand: Able to make a fist. No swelling or tenderness to palpation of the MCPs, PIPs or DIPs. * Left Hand: Able to make a fist. No swelling or tenderness to palpation of the MCPs, PIPs or DIPs. * Herbedens and Bouchards nodes noted bilaterally Wrists * Right Wrist: Full ROM to flexion and extension. No swelling or TTP * Left Wrist: Full ROM to flexion and extension. No swelling or TTP Elbows * Right Elbow: Full ROM. No swelling or TTP. No TTP of the medial epicondyle. No TTP of the lateral epicondyle * Left Elbow: Full ROM. No swelling or TTP. No TTP of the medial epicondyle. No TTP of the lateral epicondyle Shoulders * Right shoulder: Full ROM. No swelling noted. No TTP of the AC joint. No TTP of the subacromial bursa. No TTP of the posterior shoulder * Left shoulder: Full ROM. No swelling noted. No TTP of the AC joint. No TTP of the subacromial bursa. No TTP of the posterior shoulder Knees * Right knee: Full ROM. No swelling noted. No TTP of the knee joint line. No TTP of pes anserine bursa * Left knee: Full ROM. No swelling noted. No TTP of the knee joint line. No TTP of pes anserine bursa. * Crepitations felt bilaterally Ankles * Right ankle: Good ankle dorsiflexion and plantar flexion. No swelling. No TTP of the ankle joint * Left ankle: Good ankle dorsiflexion and plantar flexion. No swelling. No TTP of the ankle joint Feet * Right foot: Negative squeeze test * Left foot: Negative squeeze test Tender points? * No tenderness to palpation of the bilateral trapezius, supraspinatus, anterior costochondral junctions, bilateral suboccipital muscle insertions SKIN No rashes Vital Signs: Last Vital Signs Pulse 72 08/30/25 08:05 BP 120/62 08/30/25 08:05 Pulse Ox 99 08/30/25 08:05 Oxygen Delivery Method Room Air 08/30/25 08:05 BMI result Body Mass Index 20.5 Office Meds Prolia 60 mg/mL subcutaneous syringe Performing Provider: Kacie Osborne MD Performing Location: [facility] [place] Rheumatology-[facility] Administered by: Dulce Jones RN on 08/30/25 08:30 Dose Route Admin Location Dispensed Lot Number Expiration Date [facility] Stitcher Operator 60 mg subcut left upper arm 1 mL [id number] 07/31/27 33328-435-18 [employer] EN Total Dispensed Waste 1 mL 0 % Comments: Patient presents for Prolia injection. Administration site clean dry and intact. Administration to left upper arm. No reaction. Patient also had no reaction or adverse effects from previous injection. Results Reviewed Results Reviewed: Laboratory Tests 08/12/24 08/23/25 08:40 08:02 Sodium 139 Potassium 4.3 Chloride 105 Carbon Dioxide 29 BUN 14 Creatinine 0.75 AST 23 36 H ALT 14 33 H Alkaline Phosphatase 60 Total Protein 7.5 Albumin 4.1 25-OH Vitamin D Total 65.0 DEXA 03/2025 FINDINGS: The bone mineral density of the lumbar spine is 0.761 with a T-score of -3.4, and a Z-score of -1.2. This is indicative of osteoporosis. This represents a BMD change of -6.0% compared to the prior exam. This is not statistically significant. The bone mineral density of the left total hip is 0.716 with a T-score of -2.3, and a Z-score of -0.2. This is indicative of osteopenia. This represents a BMD change of 4.1% compared to the prior exam. This is statistically significant. The bone mineral density of the left femoral neck is 0.740 with a T-score of -2.1, and a Z-score of 0.1. This is indicative of osteopenia. This represents a BMD change of 5.6% compared to the prior exam. Assessment & Plan Assessment & Plan (1) Osteoporosis: Comment: DEXA 01/2021: AP Spine -1.2, Left femur neck -2.3, Left femur total -2.2 Fosamax for more than 5 years, DEXA worsened in the AP spine DEXA 01/2023: AP Spine -3.0, Left femur neck -2.4, Left femur total -2.5 DEXA 03/2025: AP Spine -3.4, Left femur neck -2.3, Left femur total -2.1 Prolia 08/2023 Code(s): M81.0 - Age-related osteoporosis without current pathological fracture Category: Medical Qualifiers: Osteoporosis type: age-related Presence of current pathological fracture: unspecified Qualified Code(s): M81.0 - Age-related osteoporosis without current pathological fracture Plan: #Osteoporosis Patient is a 75 y.o. female with osteoporosis here today for follow up. Patient initially diagnosed with osteoporosis prior to 2019, and was on Fosamax however despite being on Fosamax she had worsening bone density between her DEXA scan of 2020 and 2022. And she was started on Prolia August 2023. She has been consistently getting her Prolia injections and her repeat bone density March 2025 shows continued worsening of her spine. This is despite Prolia. Given the worsening of her spine since 2020 to 2024 despite Fosamax and now Prolia she warrants anabolic bone agents. Plan - Stop Prolia - Start Evenity 210mg every month for 12 months - Continue weight bearing exercises - RTC 6 months - Labs before visit: CMP, Vitamin D (2) Encounter for ongoing osteoporosis therapy, non-bisphosphonates: Code(s): M81.0 - Age-related osteoporosis without current pathological fracture; Z79.899 - Other chcf (current) drug therapy Plan: #Long-term Use of Evenity Risks and benefits of romosuzumab in the management of osteoporosis Benefits include improved bone density, decreased fracture risk Risks include atypical femoral fractures, osteonecrosis of the jaw, injection site reactions, joint pain and headache Advised that patient should time any major dental work to 30 days after last injection and hold the injection for another 30 days Keep vitamin-D at least 35 ng/mL Plan I spent 35 minutes reviewing the record and labs, taking a history, examining the patient, discussing the treatment plan, ordering diagnostic work up and documenting in the medical record Orders: Orders AMB Denosumab Injection Practice Supplied Today M81.0 - Age-related osteoporosis without current pathological fracture Comprehensive Met. Panel 6 Months M81.0 - Age-related osteoporosis without current pathological fracture Vitamin D 25-OH Total 6 Months M81.0 - Age-related osteoporosis without current pathological fracture Medications: New romosozumab-aqqg (Evenity) 210 mg (2.34 mL) subcut QMONTH 2.34 mL 11RF 1 month M81.0 - Age-related osteoporosis without current pathological fracture Coding Level of Care Code Est Pt Level 4 (79964) Complex EM visit Add On G2211 Diagnoses Age related osteoporosis, unspecified pathological fracture presence M81.0 Osteoporosis type: age-related Presence of current pathological fracture: unspecified Encounter for ongoing osteoporosis therapy, non-bisphosphonates M81.0; Z79.899
[2025-08-30 08:05] VITALS: BP 120/62; PULSE 72; O2SAT 99; BMI 20.5
== END 2025-08-30 08:50 | disposition home or self-care (01) ==
LOC: HO.RHES 07:46
PROVIDERS: PCP Internal Medicine; Visit Provider Student in an Organized Health Care Education/Training Program
DX: M81.0 Age-related osteoporosis without current pathological fracture (principal); Z79.899 Other long term (current) drug therapy
CPT/HCPCS: 99214; G2211

== ENCOUNTER → 2025-08-30 07:45 | Outpatient (BNVA) | payer MEDICARE, SELFPAY | PROVIDERS: PCP Internal Medicine; Visit Provider Student in an Organized Health Care Education/Training Program | DX: M81.0 Age-related osteoporosis without current pathological fracture (principal); Z79.899 Other long term (current) drug therapy | CPT/HCPCS: 96372; 99212; J0897 ==

== ENCOUNTER 2025-09-30 10:58 | Outpatient (AMB) | payer MEDICARE, SELFPAY ==
--- NOTE | 2025-09-30 10:58 | A.OFFVIS_ITS ---
Vital Signs 3 09/30/25 11:05 Height 5 ft 3 in Weight 119 lb 4 oz BMI 21.1 BP 148/67 H Blood Pressure Location Lt brachial Position Sitting Pulse 80 Intake Visit Reasons: Unspecified lump in the right breast Intake Note: Patient is seen in office for evaluation of a lump in the right breast. 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 She initially noted of the lump on self-examination several months ago and subsequently underwent a diagnostic mammogram and ultrasound of the right breast performed on 08/16/2025. This revealed no suspicious findings in the right breast. The patient has subsequently noted that the lesion has decreased in size in his no longer palpable. She denies a previous history of breast problems or breast surgery. Her family history is negative for breast or ovarian cancer. Her menarche was at 10, she is in her 1st child was born when she was 32 years old. She denies breast-feeding her children. Her LMP was at the age of 48 and she had briefly when on hormone replacement therapy. She has a history of left nipple retraction which is been present for many years without any significant change. [facility] Medical History High cholesterol Surgical History H/O hand surgery Family History Mother Heart attack Ribeiro palsy Father No problems noted. Social History Household Members: Spouse Housing: House Alcohol intake: current Alcohol intake frequency: holidays/special occasions only Patient Tobacco Use Status: Former Tobacco user Current occupational status: retired Sexual orientation: Straight/Heterosexual Gender identity: Female Female Reproductive History Menstrual Age of Menarche: 10 Age of menopause: 48 Total pregnancies: 2 Number of Living Children: 2 Review of Systems Const All systems reviewed & are unremarkable except as noted in HPI and below Physical Exam Vital Signs: Last Vital Signs Pulse 80 09/30/25 11:05 BP 148/67 H 09/30/25 11:05 BMI result Body Mass Index 21.1 Const General: cooperative and no acute distress Nutritional Appearance: well nourished Orientation/consciousness: patient oriented x3 Limitations: no limitations HEENT Head: Yes normocephalic and Yes atraumatic Ears: hearing grossly normal bilaterally Chest Other: Left breast: No skin change, no nipple retraction, no nipple discharge, no palpable mass, no enlarged lymph nodes. Right breast: No skin change, no nipple retraction, no nipple discharge, no palpable mass, no enlarged lymph nodes; no suspicious palpable mass noted in the lower inner quadrant at this time. Chest/axillae images: 2 1. Site of previous palpable mass lower inner quadrant. Resp Effort & Inspection: normal respiratory effort, no audible wheezes, no cough and no respiratory distress Cardio Jugular venous distension: no JVD GI Inspection: Yes normal to inspection Skin Other: Warm, dry, no rash Neuro General: patient oriented x3 Extrem General: Yes no clubbing, cyanosis or edema Assessment & Plan Assessment & Plan (1) Breast lump on right side at 5 o'clock position: Comment: 8 cm from the nipple Code(s): N63.14 - Unspecified lump in the right breast, lower inner quadrant Category: Medical Plan 75-year-old female patient with a previous history of a palpable mass noted on self-examination in the right breast at the lower inner quadrant. Workup with mammogram and ultrasound was negative for any suspicious findings. She has no previous history of breast problems or breast surgery. She currently is unable to feel a lump as before. Examination today reveals mild thickening in the lower inner quadrant felt equally in both breasts with no suspicious findings in either breast. The fact that the lesion has decreased in size in his now no longer palpable is certainly an encouraging finding. No surgical intervention is recommended at this time. She should continue with her self examinations and routine breast screening should follow up as needed. Coding Level of Care Code New Pt Level 4 (59790) Diagnoses Breast lump on right side at 5 o'clock position N63.14
[2025-09-30 11:05] VITALS: BP 148/67; PULSE 80; BMI 21.1
--- OUTSIDE RECORDS SUMMARY | 2025-09-30 12:28 | XMS_ITS | Clinical Summary ---
Author Organization [facility] Address [address] [phone] Phone Care Team Providers Care Aprn Name Role Phone Francis Burgess MD Primary [...] 09/19/2023, 09/20/2022, Additional history exists COVID-19 VACCINE (2024- season) 2025 09/09/2024, 09/05/2023, 09/20/2022, Additional history [...] REPLACEMENT MEDICARE REPLACEMENT MEDICARE REPLACEMENT Care Teams Aprn Relationship Specialty Start Date End Date Francis Burgess MD [address] [place] [address] PCP - General Internal Medicine 10/01/24 Additional Source Comments The information contained in this document represents components of the legal health record. It is not the complete legal health record.[facility]
== END 2025-09-30 11:26 | disposition home or self-care (01) ==
LOC: HO.HGS 10:58
PROVIDERS: PCP Internal Medicine; Visit Provider Surgery
DX: N63.14 Unspecified lump in the right breast, lower inner quadrant (principal)
CPT/HCPCS: 99204

== ENCOUNTER → 2025-09-30 10:58 | Outpatient (BNVA) | payer MEDICARE, SELFPAY | PROVIDERS: PCP Internal Medicine; Visit Provider Surgery | DX: N63.14 Unspecified lump in the right breast, lower inner quadrant (principal); Z87.891 Personal history of nicotine dependence | CPT/HCPCS: 99202 ==

== ENCOUNTER 2025-10-04 10:02 | Outpatient (AMB) | payer MEDICARE, SELFPAY ==
--- OUTSIDE RECORDS SUMMARY | 2025-10-04 11:41 | XMS_ITS | Clinical Summary ---
Author Organization [facility] Address [address] [phone] Phone Care Team Providers Care Prisoner Classification Interviewer Name Role Phone Francis Burgess MD Primary [...] REPLACEMENT MEDICARE REPLACEMENT MEDICARE REPLACEMENT Care Teams Prisoner Classification Interviewer Relationship Specialty Start Date End Date Francis Burgess MD [address] [place] [address] PCP - General Internal Medicine 10/01/24 Additional Source Comments The information contained in this document represents components of the legal health record. It is not the complete legal health record.[facility]
--- NOTE | 2025-10-04 12:02 | AM.OFFVISNUR ---
Intake Visit Reasons: evenity inj #1 Allergies No Known Allergies Allergy (Verified 09/30/25 11:02) Office Meds romosozumab-aqqg 210 mg/2.34 mL(105 mg/1.17 mL x2)subcutaneous syringe Performing Provider: Kacie Osborne MD Performing Location: [facility] [place] Rheumatology-[facility] Administered by: Dulce Jones RN on 10/04/25 12:02 Dose Route Admin Location Dispensed Lot Number Expiration Date [facility] [employer] 105 mg subcut right posterior arm 1.17 mL [id number] 10/30/27 54781-659-27 [employer] 105 mg subcut left posterior arm 1.17 mL [id number] 10/30/27 56514-326-66 [employer] Total Dispensed Waste 2.34 mL 0 % Comments: Dulce arrived for her first Evenity injections today. We reviewed side effects and adverse reactions. Each injection site was clear, dry, and intact. The first injection was in her right posterior arm. The second injection was in her left posterior arm. She tolerated both injections with no issue. She stayed 20 minutes after injections to be monitored with no reactions noted. Patient left with her and will call if there are any concerns. Assessment & Plan Assessment & Plan Orders: Orders AMB Romosozumab Injection Patient Supplied Today M81.0 - Age-related osteoporosis without current pathological fracture Coding
== END 2025-10-04 11:20 | disposition home or self-care (01) ==
LOC: HO.RHES 10:02
PROVIDERS: PCP Internal Medicine; Visit Provider Student in an Organized Health Care Education/Training Program
DX: M81.0 Age-related osteoporosis without current pathological fracture (principal)

== ENCOUNTER → 2025-10-04 10:02 | Outpatient (BNVA) | payer MEDICARE, SELFPAY | PROVIDERS: PCP Internal Medicine; Visit Provider Student in an Organized Health Care Education/Training Program | DX: M81.0 Age-related osteoporosis without current pathological fracture (principal) | CPT/HCPCS: 96372; J3111 ==

== ENCOUNTER 2025-11-08 09:45 | Outpatient (AMB) | payer MEDICARE, SELFPAY ==
--- NOTE | 2025-11-08 10:04 | AM.OFFVISNUR ---
Intake Visit Reasons: evenity inj #2 Allergies No Known Allergies Allergy (Verified 09/30/25 11:02) Office Meds romosozumab-aqqg 210 mg/2.34 mL(105 mg/1.17 mL x2)subcutaneous syringe Performing Provider: Kacie Osborne MD Performing Location: [facility] [place] Rheumatology-[facility] Administered by: Dulce Jones RN on 11/08/25 10:04 Dose Route Admin Location Dispensed Lot Number Expiration Date [facility] [employer] 105 mg subcut right upper arm 1.17 mL [id number] 03/30/28 27337-376-86 [employer] 105 mg subcut left upper arm 1.17 mL [id number] 03/30/28 63082-962-83 [employer] Total Dispensed Waste 2.34 mL 0 % Comments: Dulce received Evenity #2 injections today in bilateral upper arms. Injection sites were clear, dry, and intact and she tolerated the injections well. Patient was informed to notify us if she experiences any adverse reactions or side effects. Assessment & Plan Assessment & Plan Orders: Orders AMB Romosozumab Injection Patient Supplied Today M81.0 - Age-related osteoporosis without current pathological fracture Coding
== END 2025-11-08 10:02 | disposition home or self-care (01) ==
LOC: HO.RHES 09:46
PROVIDERS: PCP Internal Medicine; Visit Provider Student in an Organized Health Care Education/Training Program
DX: M81.0 Age-related osteoporosis without current pathological fracture (principal)

== ENCOUNTER → 2025-11-08 09:45 | Outpatient (BNVA) | payer MEDICARE, SELFPAY | PROVIDERS: PCP Internal Medicine; Visit Provider Student in an Organized Health Care Education/Training Program | DX: M81.0 Age-related osteoporosis without current pathological fracture (principal) | CPT/HCPCS: 96372; J3111 ==